=== PATIENT | male | born 1940 | race Caucasian/White ===

== ENCOUNTER 2016-03-30 13:57 | Inpatient (IN) | payer BC, MEDICARE ==
[2016-03-30] MEDS ORDERED: IPRATROPIUM/ALBUTEROL 0.5-2.5 MG/3 ML AMPUL NEB ONE (14:05)
[2016-03-30] MEDS ORDERED: METHYLPREDNISOLONE INJ 125 MG/2 ML SDV IV ONE (14:05)
--- NOTE | 2016-03-30 14:05 | ER Document Report ---
ED Respiratory Problem - General Chief Complaint: Shortness Of Breath Stated Complaint: BREATHING PROBLEM Notes: The patient is a 75-year-old male, past history COPD (not on home O2), presents with increased shortness of breath over the past day. He was found to be in A. fib with RVR and 85% on room air by EMS with some mild wheezing. He was given a DuoNeb treatment and his shortness of breath has improved. Patient says that he had A. fib 20 years ago and was cardioverted. He is not on any blood thinners other than a baby aspirin and does not have A. fib at this time. He denies chest pain, fevers, nausea, vomiting, back pain, leg swelling, rash, palpitations or cough. TRAVEL OUTSIDE OF THE [place] IN LAST 30 DAYS: No - Related Data Allergies/Adverse Reactions: No Known Allergies Allergy (Verified 03/30/16 14:54) Past Medical History - General Information source: Patient - Social History Smoking Status: Former Smoker Family History: Reviewed & Not Pertinent - Past Medical History Cardiac Medical History: Reports: Hx Hypertension - CONTROLLED Denies: Hx Heart Attack Pulmonary Medical History: Denies: Hx Asthma Neurological Medical History: Reports: Hx Cerebrovascular Accident - cerebral anuerysm. Denies: Hx Seizures GI Medical History: Denies: Hx Hepatitis, Hx Hiatal Hernia, Hx Ulcer Infectious Medical History: Denies: Hx Hepatitis Past Surgical History: Denies: Hx Open Heart Surgery, Hx Pacemaker - Immunizations Hx Diphtheria, Pertussis, Tetanus Vaccination: Yes - 09/28/2014 Review of Systems - Review of Systems Notes: REVIEW OF SYSTEMS: CONSTITUTIONAL: -fevers, -chills EENT: -eye pain, -difficulty swallowing, -nasal congestion CARDIOVASCULAR: -chest pain, -syncope. RESPIRATORY: +cough, +SOB GASTROINTESTINAL: -abdominal pain, -nausea, -vomiting, -diarrhea GENITOURINARY: -dysuria, -hematuria MUSCULOSKELETAL: -back pain, -neck pain SKIN: -rash or skin lesions. HEMATOLOGIC: -easy bruising or bleeding. LYMPHATIC: -swollen, enlarged glands. NEUROLOGICAL: -altered mental status or loss of consciousness, -headache, - neurologic symptoms PSYCHIATRIC: -anxiety, -depression. ALL OTHER SYSTEMS REVIEWED AND NEGATIVE. Physical Exam - Vital signs Vitals: Resp Pulse Ox 15 93 03/30/16 14:18 03/30/16 14:18 - Notes Notes: PHYSICAL EXAMINATION: GENERAL: Well-appearing, well-nourished and in no acute distress. HEAD: Atraumatic, normocephalic. EYES: Pupils equal round and reactive to light, extraocular movements intact, sclera anicteric, conjunctiva are normal. ENT: nares patent, oropharynx clear without exudates. Moist mucous membranes. NECK: Normal range of motion, supple without lymphadenopathy LUNGS: Mild end expiratory wheezing. No increased work of breathing. HEART: Irregular irregular heart rate, tachycardia. ABDOMEN: Soft, nontender, normoactive bowel sounds. No guarding, no rebound. No masses appreciated. EXTREMITIES: Normal range of motion, no pitting or edema. No cyanosis. NEUROLOGICAL: Cranial nerves grossly intact. Normal speech, normal gait. Normal sensory, motor, and reflex exams. PSYCH: Normal mood, normal affect. SKIN: Warm, Dry, normal turgor, no rashes or lesions noted. Course - Re-evaluation Re-evalutation: Patient with stable A. fib with RVR. He does have evidence of rhabdomyolysis with DELILAH (no prior creatinine level) and elevated troponin without STEMI on EKG. Patient has no chest pain. After DuoNeb and steroids, patient's wheezing resolved and he no longer has any shortness of breath. Patient has not had any recent GI bleeds or head injury. Will begin heparin due to NSTEMI and A. fib RVR. After 2 L of normal saline to help with the rhabdo and DELILAH, patient remains tachycardic. Will begin patient on diltiazem drip. He remains stable and asymptomatic. Patient has history of treated lymphoma and now has leukocytosis with tachycardia, but his lactate is normal and has no signs of infection at this time. With new onset A. fib, elevated troponin, rhabdomyolysis and DELILAH, patient requires inpatient evaluation at a facility with interventional cardiology. Patient requests transfer to [facility] because he has seen Dr. Zambrano ([facility]) in the past. Placed call to [facility] at 17:00. Awaiting callback from [facility]. At 17:30, spoke to Dr. Garcia Mcnamara ([facility]ic) and recommends that patient be placed on hospitalist service due to multiple other equal issues. 03/30/16 18:[address] Cortes (Hospitalist) and he has accepted patient to [facility] telemetry. Patient remains asymptomatic and hemodynamically stable. Started on diltiazem and heparin drip. Awaiting bed assignment and then transfer. - Vital Signs Vital signs: Temp Pulse Resp BP Pulse Ox 17 102/60 90 L 03/30/16 17:01 03/30/16 17:01 03/30/16 17:00 - Laboratory Result Diagrams: 03/30/16 14:20 03/30/16 14:20 Laboratory results interpreted by me: 03/30/16 03/30/16 03/30/16 14:20 14:20 14:20 WBC 16.0 H RBC 4.02 L Hgb 11.9 L Hct 36.7 L Seg Neuts % (Manual) 35 L Monocytes % (Manual) 21 H Abs Lymphs (Manual) 6.9 H Abs Monocytes (Manual) 3.4 H BUN 44 H Creatinine 2.83 H Est GFR ( Amer) 26 L Est GFR (Non-Af Amer) 22 L Glucose 160 H Calcium 11.5 H Creatine Kinase 1269 H NT-Pro-B Natriuret Pep 7300 H - EKG Interpretation by Me EKG shows normal: QRS Complexes, ST-T Waves Rate: Tachycardia Rhythm: A.Fib Discharge - Discharge Clinical Impression: NSTEMI (non-ST elevated myocardial infarction), Hypoxia, Atrial fibrillation with rapid ventricular response, DELILAH (acute kidney injury) Rhabdomyolysis Qualifiers: Rhabdomyolysis type: non-traumatic Qualified Code(s): M62.82 - Rhabdomyolysis Disposition: [facility] Admitting Provider: Dr. Cortes
[2016-03-30 14:48] LABS: HEMATOCRIT 36.7 % (37.9-51.0); HEMOGLOBIN 11.9 g/dL (13.5-17.0); MEAN CORPUSCULAR HEMOGLOBIN 29.6 pg (27.0-33.4); MEAN CORPUSCULAR HGB CONC 32.4 g/dL (32.0-36.0); MEAN CORPUSCULAR VOLUME 91 fl (80-97); RED BLOOD COUNT 4.02 10^6/uL (4.35-5.55); RED CELL DISTRIBUTION WIDTH 13.3 % (11.5-14.0)
[2016-03-30 15:05] LABS: ANION GAP 11 (5-19); BLOOD UREA NITROGEN 44 mg/dL (7-20); CALCIUM 11.5 mg/dL (8.4-10.2); CARBON DIOXIDE 28 mmol/L (22-30); CHLORIDE 99 mmol/L (98-107); CREATINE KINASE 1269 U/L (55-170); CREATININE RESULT 2.83 mg/dL (0.52-1.25); GLUCOSE 160 mg/dL (75-110); POTASSIUM 4.2 mmol/L (3.6-5.0); SODIUM 138.3 mmol/L (137-145)
[2016-03-30 15:09] LABS: BASOPHILS % (MANUAL) 1 % (0-2); EOSINOPHILS % (MANUAL) 0 % (0-6); LYMPHOCYTES % (MANUAL) 23 % (13-45); TOTAL CELLS COUNTED 100
[2016-03-30 15:11] LABS: RBC MORPHOLOGY COMMENT NORMO-CYTIC/CHROMIC; SMUDGE CELLS PRESENT; TOXIC GRANULATION SLIGHT
[2016-03-30] MEDS ORDERED: DILTIAZEM HCL INJ 25 MG/5 ML VIAL IV ONE ×2 (15:13→18:45)
[2016-03-30] MEDS ORDERED: NORMAL SALINE 1000 ML 1,000 ML IV PRN ×2 (15:13→19:20)
[2016-03-30 15:26] LABS: TROPONIN I 0.181 ng/mL
[2016-03-30] MEDS ORDERED: HEPARIN SOD (PORCINE) 1,000 UNIT/ML 1 ML VIAL IV ONE (15:46)
[2016-03-30] MEDS ORDERED: HEPARIN SOD (PORCINE) 1,000 UNIT/ML 10 ML VIAL IV ONE ×2 (15:49→15:52)
[2016-03-30] MEDS ORDERED: HEPARIN SOD (PORCINE) 1,000 UNIT/ML 10 ML VIAL IV PRN (15:52)
[2016-03-30] MEDS ORDERED: NITROGLYCERIN 0.4 MG/TAB 25 TAB/BOTTLE SL PRN (16:23)
[2016-03-30] MEDS ORDERED: ASPIRIN 81 MG TABLET, CHEWABLE PO ONE (16:36)
[2016-03-30] MEDS: HEPARIN SODIUM,PORCINE/D5W 250 ML IV PRN (18:00)
[2016-03-30] MEDS ORDERED: DILTIAZEM HCL/D5W 125 ML IV PRN (18:17)
[2016-03-30] MEDS ORDERED: NORMAL SALINE 1000 ML 1,000 ML IV ONE (19:18)
[2016-03-30 21:43] LABS: APPEARANCE,URINE CLOUDY; BILIRUBIN,URINE NEGATIVE (NEGATIVE); GLUCOSE, URINE NEGATIVE (NEGATIVE); KETONES,URINE TRACE mg/dL (NEGATIVE); LEUKOCYTE ESTERASE,URINE NEGATIVE (NEGATIVE); NITRITE,URINE NEGATIVE (NEGATIVE); PROTEIN,URINE 30 mg/dL (NEGATIVE); URINE SPECIFIC GRAVITY 1.019; UROBILINOGEN,URINE NEGATIVE mg/dL (<2.0)
--- NOTE | 2016-03-30 21:51 | EKG REPORT ---
SEVERITY:- ABNORMAL ECG - ATRIAL FIBRILLATION, V-RATE 78-176 REPOLARIZATION ABNORMALITY, PROB RATE RELATED BORDERLINE PROLONGED QT INTERVAL : Confirmed by: Kp Najera 30-Mar-2016 21:50:41
[2016-03-31 00:56] LABS: PROTHROMBIN TIME 14.6 SEC (11.4-15.4)
[2016-03-31 07:09] LABS: PROTHROMBIN TIME 14.2 SEC (11.4-15.4)
[2016-03-31 07:31] LABS: PARTIAL THROMBOPLASTIN TIME 149.2 SEC (23.5-35.8)
[2016-03-31] MEDS ORDERED: LANSOPRAZOLE 15 MG TAB.RAP.DR PO ONE (11:30)
[2016-03-31] MEDS ORDERED: DOXYCYCLINE HYCLATE 100 MG TABLET PO SCH ×2 (12:00→22:00)
[2016-03-31] MEDS ORDERED: DOXYCYCLINE HYCLATE 100 MG TABLET PO ONE (12:00)
[2016-03-31] MEDS: NORMAL SALINE 1000 ML 1,000 ML IV PRN (12:25)
[2016-03-31] MEDS ORDERED: AMIODARONE HCL 150 MG in DEXTROSE 5%-WATER 100 ML IV ONE (12:30)
--- NOTE | 2016-03-31 15:35 | PDOC H&P ---
History of Present Illness Admission Date/PCP: 03/31/16 11:11 Patient complains of: "flue like symptoms ". atrial fibrillation with RVR History of Present Illness: NADEGE MILLER is a 75 year old male past history COPD (not on home O2), presents with increased shortness of breath over the past day. He was found to be in A. fib with RVR and 85% on room air by EMS with some mild wheezing. He was given a DuoNeb treatment and his shortness of breath has improved. Patient says that he had A. fib 20 years ago and was cardioverted. Past Medical History Cardiac Medical History: Reports: Hypertension - CONTROLLED Denies: Myocardial Infarction Pulmonary Medical History: Reports: Chronic Obstructive Pulmonary Disease (COPD) Denies: Asthma Neurological Medical History: Denies: Seizures GI Medical History: Denies: Hepatitis, Hiatal Hernia Hematology: Denies: Anemia, Sickle Cell Disease Past Surgical History Past Surgical History: Denies: Pacemaker Social History Smoking Status: Former Smoker Frequency of Alcohol Use: None Hx Recreational Drug Use: No Hx Prescription Drug Abuse: No - Advance Directive Resuscitation Status: Full Code Surrogate healthcare decision maker:: Eva Family History Family History: Other - patient not cooperative in giving information "doctor should not ask private questions " Parental Family History Reviewed: Yes Children Family History Reviewed: Yes Sibling(s) Family History Reviewed.: Yes Medication/Allergy Home Medications: Aspirin [Aspirin EC] 81 mg PO DAILY 12/25/13 Budesonide/Formoterol Fumarate [Symbicort HFA 160-4.5 mcg Inhaler 6 gm] 2 puff IH Q12 12/25/13 Folic Acid/Multivit-Min/Lutein [Centrum Silver Chewable Tablet] 1 each PO DAILY 12/25/13 Omeprazole [Prilosec] 20 mg PO QAM 12/25/13 Doxazosin Mesylate 8 mg PO QHS 12/26/15 Metoprolol Succinate 50 mg PO TID 12/26/15 Lisinopril/Hydrochlorothiazide [Lisinopril-Hctz 20-12.5 mg Tab] 1 tab PO DAILY 03/31/16 Sertraline HCl [Zoloft 50 mg Tablet] 50 mg PO DAILY 03/31/16 Allergies/Adverse Reactions: No Known Allergies Allergy (Verified 03/30/16 14:54) Review of Systems Constitutional: PRESENT: weakness. ABSENT: anorexia, chills, fever(s), night sweats Nose, Mouth, and Throat: ABSENT: headache(s) Cardiovascular: PRESENT: chest pain, dyspnea on exertion, palpitations Respiratory: PRESENT: cough, dyspnea, sputum - yellow. ABSENT: hemoptysis Gastrointestinal: ABSENT: abdominal pain, constipation, diarrhea, hematemesis, hematochezia, nausea, vomiting Genitourinary: ABSENT: dysuria, hematuria Musculoskeletal: ABSENT: joint swelling Neurological: ABSENT: abnormal gait, abnormal speech, confusion, dizziness, focal weakness, syncope Hematologic/Lymphatic: ABSENT: easy bleeding, easy bruising Physical Exam Vital Signs: Temp Pulse Resp BP Pulse Ox 97.6 F 96 24 H 117/72 94 03/30/16 19:00 03/31/16 11:39 03/31/16 11:39 03/31/16 11:39 03/31/16 11:39 General appearance: PRESENT: no acute distress, well-developed, well-nourished Head exam: PRESENT: atraumatic, normocephalic Eye exam: PRESENT: conjunctiva pink, EOMI, PERRLA. ABSENT: scleral icterus Ear exam: PRESENT: normal external ear exam Mouth exam: PRESENT: moist, tongue midline Neck exam: ABSENT: carotid bruit, JVD, lymphadenopathy, thyromegaly Respiratory exam: PRESENT: decreased breath sounds. ABSENT: rales, rhonchi, wheezes Cardiovascular exam: PRESENT: RRR. ABSENT: diastolic murmur, rubs, systolic murmur Pulses: PRESENT: normal dorsalis pedis pul Vascular exam: PRESENT: normal capillary refill GI/Abdominal exam: PRESENT: normal bowel sounds, soft. ABSENT: distended, guarding, mass, organolmegaly, rebound, tenderness Rectal exam: PRESENT: deferred Extremities exam: PRESENT: full ROM. ABSENT: calf tenderness, clubbing, pedal edema Neurological exam: PRESENT: alert, awake, oriented to person, oriented to place , oriented to time, oriented to situation, CN II-XII grossly intact. ABSENT: motor sensory deficit Psychiatric exam: PRESENT: appropriate affect, normal mood. ABSENT: homicidal ideation, suicidal ideation Skin exam: PRESENT: dry, intact, warm. ABSENT: cyanosis, rash Results Laboratory Results: 03/31/16 11:29 Troponin I 0.081 Labs- All tests 24 hr 03/30/16 03/30/16 03/30/16 14:20 16:05 20:30 WBC 16.0 H RBC 4.02 L Hgb 11.9 L Hct 36.7 L MCV 91 MCH 29.6 MCHC 32.4 RDW 13.3 Plt Count 405 Total Counted 100 Seg Neuts % (Manual) 35 L Lymphocytes % (Manual) 23 Atypical Lymphs % 20 Monocytes % (Manual) 21 H Eosinophils % (Manual) 0 Basophils % (Manual) 1 Abs Neuts (Manual) 5.6 Abs Lymphs (Manual) 6.9 H Abs Monocytes (Manual) 3.4 H Absolute Eos (Manual) 0.0 Abs Basophils (Manual) 0.2 Smudge Cells PRESENT Toxic Granulation SLIGHT Platelet Comment ADEQUATE RBC Morph Comment NORMO-CYTIC/CHROMIC PT INR APTT Lactic Acid 1.7 Troponin I 0.122 Urine Color Urine Appearance Urine pH Ur Specific [place] Urine Protein Urine Glucose (UA) Urine Ketones Urine Blood Urine Nitrite Urine Bilirubin Urine Urobilinogen Ur Leukocyte Esterase Urine WBC (Auto) Urine RBC (Auto) U Hyaline Cast (Auto) Urine Bacteria (Auto) Squamous Epi Cells Auto Urine Mucus (Auto) Urine Ascorbic Acid Slides for Path Review 03/30/16 03/31/16 03/31/16 21:23 00:39 00:39 WBC RBC Hgb Hct MCV MCH MCHC RDW Plt Count Total Counted Seg Neuts % (Manual) Lymphocytes % (Manual) Atypical Lymphs % Monocytes % (Manual) Eosinophils % (Manual) Basophils % (Manual) Abs Neuts (Manual) Abs Lymphs (Manual) Abs Monocytes (Manual) Absolute Eos (Manual) Abs Basophils (Manual) Smudge Cells Toxic Granulation Platelet Comment RBC Morph Comment PT 14.6 INR 1.10 APTT Lactic Acid Troponin I 0.109 Urine Color YELLOW Urine Appearance CLOUDY Urine pH 5.0 Ur Specific [place] 1.019 Urine Protein 30 H Urine Glucose (UA) NEGATIVE Urine Ketones TRACE H Urine Blood NEGATIVE Urine Nitrite NEGATIVE Urine Bilirubin NEGATIVE Urine Urobilinogen NEGATIVE Ur Leukocyte Esterase NEGATIVE Urine WBC (Auto) 7 Urine RBC (Auto) 4 U Hyaline Cast (Auto) 111 Urine Bacteria (Auto) TRACE Squamous Epi Cells Auto 5 Urine Mucus (Auto) OCC Urine Ascorbic Acid NEGATIVE Slides for Path Review 03/31/16 03/31/16 03/31/16 00:39 02:49 06:46 WBC RBC Hgb Hct MCV MCH MCHC RDW Plt Count Total Counted Seg Neuts % (Manual) Lymphocytes % (Manual) Atypical Lymphs % Monocytes % (Manual) Eosinophils % (Manual) Basophils % (Manual) Abs Neuts (Manual) Abs Lymphs (Manual) Abs Monocytes (Manual) Absolute Eos (Manual) Abs Basophils (Manual) Smudge Cells Toxic Granulation Platelet Comment RBC Morph Comment PT 14.2 INR 1.07 APTT Cancelled 108.1 H 149.2 H* Lactic Acid Troponin I Urine Color Urine Appearance Urine pH Ur Specific [place] Urine Protein Urine Glucose (UA) Urine Ketones Urine Blood Urine Nitrite Urine Bilirubin Urine Urobilinogen Ur Leukocyte Esterase Urine WBC (Auto) Urine RBC (Auto) U Hyaline Cast (Auto) Urine Bacteria (Auto) Squamous Epi Cells Auto Urine Mucus (Auto) Urine Ascorbic Acid Slides for Path Review 03/31/16 03/31/16 11:29 13:01 WBC RBC Hgb Hct MCV MCH MCHC RDW Plt Count Total Counted Seg Neuts % (Manual) Lymphocytes % (Manual) Atypical Lymphs % Monocytes % (Manual) Eosinophils % (Manual) Basophils % (Manual) Abs Neuts (Manual) Abs Lymphs (Manual) Abs Monocytes (Manual) Absolute Eos (Manual) Abs Basophils (Manual) Smudge Cells Toxic Granulation Platelet Comment RBC Morph Comment PT INR APTT 65.5 H Lactic Acid Troponin I 0.081 Urine Color Urine Appearance Urine pH Ur Specific [place] Urine Protein Urine Glucose (UA) Urine Ketones Urine Blood Urine Nitrite Urine Bilirubin Urine Urobilinogen Ur Leukocyte Esterase Urine WBC (Auto) Urine RBC (Auto) U Hyaline Cast (Auto) Urine Bacteria (Auto) Squamous Epi Cells Auto Urine Mucus (Auto) Urine Ascorbic Acid Slides for Path Review Impressions: Chest X-Ray 03/30/16 14:04 IMPRESSION: COPD. No acute findings. Renal Ultrasound 03/31/16 11:14 IMPRESSION: Benign cysts. No hydronephrosis. Assessment & Plan - Diagnosis (1) DELILAH (acute kidney injury) Is this a current diagnosis for this admission?: YesPlan: prior renal function unknown Renal US no hydronephrosis continue to hydrate follow up BMP in am (2) Atrial fibrillation with rapid ventricular response Plan: cardizem drip, amiodarone drip heparin drip cardiology consult obtained - (3) COPD exacerbation Is this a current diagnosis for this admission?: YesPlan: levaquin , nebs (4) Elevated troponin Is this a current diagnosis for this admission?: YesPlan: in downward trend troponin leak associated with tachycardia versus acute nonSTEMI ASA, Heparin , lipitor ordered Echo Cardiology consult - Time Time Spent: 50 to 70 Minutes
[2016-03-31] MEDS: HEPARIN SODIUM,PORCINE/D5W 250 ML IV PRN (16:30)
--- NOTE | 2016-03-31 16:43 | XCELERA REPORT ---
[address] [address] Transthoracic Echocardiogram Report Name: NADEGE MILLER Age: 75 yrs Gender: Male : 1940 Patient Status: Inpatient Patient Location: \S\14\S\A Study Date: 03/31/2016 01:04 PM Height: 77 in Weight: 250 lb BSA: 2.5 m2 Procedure: A complete two-dimensional transthoracic echocardiogram was performed (2D, M-mode, spectral and color flow Doppler). The study was technically adequate with some images being suboptimal in quality. Reason For Study: PAF Ordering Physician: VALERIE CHAVEZ Performed By: Lucille Blanco Interpretation Summary The left ventricular ejection fraction is normal. The left ventricle is grossly normal size. There is borderline concentric left ventricular hypertrophy. Wall motion cannot be accurately commented on, but no definite regional wall motion abnormalities noted. LV diastolic function could not be adequately assessed due to atrial fibrilation. The right ventricular systolic function is normal. The left atrial size is normal. The right atrium is normal in size There is a trace amount of mitral regurgitation There is no mitral valve stenosis. There is no aortic valve stenosis No aortic regurgitation is present. There is a trace or physiologic amount of tricuspid regurgitation Tricuspid regurgitation jet envelope not well defined to measure RV systolic pressure accurately. There is no pericardial effusion. MMode/2D Measurements \T\ Calculations RVDd: 3.4 cm LVIDd: 5.2 cmFS: 43.1 % Ao root diam: 4.4 cm IVSd: 1.2 cm LVIDs: 2.9 cmEDV(Teich): 127.3 ml LVPWd: 1.2 cmESV(Teich): 33.2 ml Ao root area: 15.0 cm2 EF(Teich): 73.9 % LA dimension: 3.3 cm LVOT diam: 2.4 cm LVOT area: 4.5 cm2 Doppler Measurements \T\ Calculations MV E max valerie: MV P1/2t max valerie: Ao V2 max: LV V1 max P.5 cm/sec 116.5 cm/sec 133.9 cm/sec 3.6 mmHg MV P1/2t: 50.6 msec Ao max PG: LV V1 max: MVA(P1/2t): 4.4 cm2 7.2 mmHg 94.3 cm/sec MV dec slope: JUDY(V,D): 3.2 cm2 674.6 cm/sec2 MV dec time: 0.19 sec PA V2 max: TR max valerie: 87.9 cm/sec 212.8 cm/sec PA max P.1 mmHgTR max P.1 mmHg Left Ventricle The left ventricle is grossly normal size. There is borderline concentric left ventricular hypertrophy. The left ventricular ejection fraction is normal. LV diastolic function could not be adequately assessed due to atrial fibrilation. Wall motion cannot be accurately commented on, but no definite regional wall motion abnormalities noted. Right Ventricle The right ventricle is grossly normal size. There is normal right ventricular wall thickness. The right ventricular systolic function is normal. Atria The right atrium is normal in size. The left atrial size is normal. Interarterial septum not well visualized and not well dopplered. Cannot comment on ASD/PFO presence. Mitral Valve The mitral valve leaflets are sclerotic, but show no functional abnormalities. There is no mitral valve stenosis. There is a trace amount of mitral regurgitation. Aortic Valve The aortic valve is mildly calcified. There is no aortic valve stenosis. No aortic regurgitation is present. Tricuspid Valve The tricuspid valve is not well visualized, but is grossly normal. There is no tricuspid stenosis. There is a trace or physiologic amount of tricuspid regurgitation. Tricuspid regurgitation jet envelope not well defined to measure RV systolic pressure accurately. Pulmonic Valve The pulmonic valve is not well visualized. Great Vessels The aortic root is not well visualized. The inferior vena cava appeared normal and decreased > 50% with respiration (RAP 5-10 mmHg). Effusions There is no pericardial effusion. : VALERIE CHAVEZ > Kp Najera
[2016-03-31] MEDS ORDERED: HEPARIN SODIUM,PORCINE/D5W 250 ML IV PRN (16:56)
[2016-03-31] MEDS ORDERED: DILTIAZEM HCL/D5W 125 ML IV PRN (16:57)
[2016-03-31 17:59] LABS: HEMATOCRIT 32.8 % (37.9-51.0); HEMOGLOBIN 10.9 g/dL (13.5-17.0); HGB HCT DIFFERENCE -0.1; MEAN CORPUSCULAR HEMOGLOBIN 29.9 pg (27.0-33.4); MEAN CORPUSCULAR HGB CONC 33.2 g/dL (32.0-36.0); MEAN CORPUSCULAR VOLUME 90 fl (80-97); RED BLOOD COUNT 3.65 10^6/uL (4.35-5.55); RED CELL DISTRIBUTION WIDTH 13.4 % (11.5-14.0); WHITE BLOOD COUNT 20.1 10^3/uL (4.0-10.5)
[2016-03-31 18:12] LABS: PROTHROMBIN TIME 13.2 SEC (11.4-15.4)
[2016-03-31 18:13] LABS: BAND NEUTROPHILS % (MANUAL) 2 % (3-5); BASOPHILS % (MANUAL) 0 % (0-2); EOSINOPHILS % (MANUAL) 0 % (0-6); LYMPHOCYTES % (MANUAL) 17 % (13-45); PARTIAL THROMBOPLASTIN TIME 51.1 SEC (23.5-35.8); TOTAL CELLS COUNTED 100
[2016-03-31 18:14] LABS: TOXIC GRANULATION SLIGHT
[2016-03-31 19:32] LABS: APPEARANCE,URINE CLEAR; BILIRUBIN,URINE NEGATIVE (NEGATIVE); GLUCOSE, URINE NEGATIVE (NEGATIVE); KETONES,URINE NEGATIVE (NEGATIVE); LEUKOCYTE ESTERASE,URINE NEGATIVE (NEGATIVE); NITRITE,URINE NEGATIVE (NEGATIVE); PROTEIN,URINE NEGATIVE (NEGATIVE); URINE SPECIFIC GRAVITY 1.013; UROBILINOGEN,URINE NEGATIVE mg/dL (<2.0)
--- NOTE | 2016-03-31 19:58 | PDOC CONSULTATION ---
Consultation Consult Date: 03/31/16 Attending physician:: VALERIE CHAVEZ Consult reason:: Positive troponin I, atrial fibrillation with rapid ventricular response History of Present Illness Admission Date/PCP: 03/31/16 11:11 Patient complains of: Dyspnea History of Present Illness: NADEGE MILLER is a 75 year old male past history COPD (not on home O2), presents with increased shortness of breath over the past day. He was found to be in A. fib with RVR and 85% on room air by EMS with some mild wheezing. He was given a DuoNeb treatment and his shortness of breath has improved. Patient says that he had A. fib 20 years ago and was cardioverted. Patient was again noted to have atrial fibrillation with rapid ventricular response. Subsequently patient cardiac enzymes came back suggestive. Patient was also noted to have renal insufficiency. Because of elevated troponin I, atrial fibrillation with rapid ventricular response, I was asked to evaluate patient. Patient denied any prior history of strokes or mini strokes. Past Medical History Cardiac Medical History: Reports: Hypertension - CONTROLLED Denies: Myocardial Infarction Pulmonary Medical History: Reports: Chronic Obstructive Pulmonary Disease (COPD) Denies: Asthma Neurological Medical History: Denies: Seizures GI Medical History: Denies: Hepatitis, Hiatal Hernia Psychiatric Medical History: Reports: Depression Hematology: Denies: Anemia, Sickle Cell Disease Past Surgical History Past Surgical History: Denies: Pacemaker Social History Information Source: Patient Smoking Status: Former Smoker Frequency of Alcohol Use: None Hx Recreational Drug Use: No Hx Prescription Drug Abuse: No - Advance Directive Resuscitation Status: Full Code Surrogate healthcare decision maker:: Patient's Family History Family History: Reviewed & Not Pertinent - Negative for premature coronary artery disease or sudden cardiac in the family amongst first degree relatives., Other - patient not cooperative in giving information "doctor should not ask private questions " Parental Family History Reviewed: Yes Children Family History Reviewed: Yes Sibling(s) Family History Reviewed.: Yes Medication/Allergy Home Medications: Aspirin [Aspirin EC] 81 mg PO DAILY 12/25/13 Budesonide/Formoterol Fumarate [Symbicort HFA 160-4.5 mcg Inhaler 6 gm] 2 puff IH Q12 12/25/13 Folic Acid/Multivit-Min/Lutein [Centrum Silver Chewable Tablet] 1 each PO DAILY 12/25/13 Omeprazole [Prilosec] 20 mg PO QAM 12/25/13 Doxazosin Mesylate 8 mg PO QHS 12/26/15 Metoprolol Succinate 50 mg PO TID 12/26/15 Lisinopril/Hydrochlorothiazide [Lisinopril-Hctz 20-12.5 mg Tab] 1 tab PO DAILY 03/31/16 Sertraline HCl [Zoloft 50 mg Tablet] 50 mg PO DAILY 03/31/16 Allergies/Adverse Reactions: No Known Allergies Allergy (Verified 03/30/16 14:54) Review of Systems Review of Systems: Please see history of present illness and past medical history as wall. Constitutional: No fever or chills reported. Head : No recent chronic headaches, recent head injury. Eyes: No recent eye pain, diplopia, redness, discharge, acute visual changes. Ears: No recent chronic ear pain, acute hearing loss, ear discharge. Oral cavity: No recent ulcerations, bleeding, oral cavity discomfort. Neck: No recent acute neck pain reported. Hematologic: No recent easy bruising or bleeding or hematologic malignancy reported. Lymphatic: No recent lymphatic malignancy, chronic lymphadenopathy reported yet Cardiovascular system review: See history of present illness. Respiratory system review: Recent cough with mild sputum production but no hemoptysis, blood clots in the lungs reported. Mild Shortness of breath on exertion Gastrointestinal system review: Negative for any recent acute or chronic abdominal pain, hematemesis, melena, recent change in bowel habits. Genitourinary system review: No recent acute or chronic hematuria, flank pain, UTI etc. reported. Skin system review: Negative for any recent abnormal bruising, no rash, no pruritus reported. Neurologic: No prior history of strokes, mini strokes, seizure disorder. Psychologic: No history of major psychosis or depression reported. Musculoskeletal: Minor aches and pains reported. No acute joint swelling reported. Endocrine: No recent polyuria, polydipsia, recent heat or cold intolerance. Physical Exam Vital Signs: Temp Pulse Resp BP Pulse Ox 97.9 F 96 24 H 148/84 H 94 03/31/16 15:50 03/31/16 15:50 03/31/16 15:50 03/31/16 17:01 03/31/16 15:50 Intake & Output 03/30/16 03/31/16 04/01/16 06:59 06:59 06:59 Intake Total 0 Output Total 200 Balance -200 Exam: GENERAL: well-nourished and in no acute distress. Alert and oriented x3 HEAD: Atraumatic, normocephalic. EYES: Pupils equal round and reactive to light, extraocular movements intact, sclera anicteric, conjunctiva are normal. ENT: TMs normal, nares patent, oropharynx clear without exudates. Moist mucous membranes. No oral ulcerations or bleeding gums noted NECK: supple without lymphadenopathy. Trachea is central. No cervical or axillary lymphadenopathy noted. Carotids are 2+, JVD 8-10 CM LUNGS: Respiration seems nonlabored, no significant accessory muscle action noted. Bilateral fine crackles noted at extreme base. No wheezes rales or rhonchi noted. No significant dullness noted on percussion. CHEST: Palpation of the chest wall shows no significant chest wall tenderness. No other significant abnormalities noted. 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 ABDOMEN: Soft, no significant tenderness appreciated, normoactive bowel sounds. No guarding, no rebound. No rigidity noted . No masses appreciated. EXTREMITIES: Pedal pulses are 1-2+, no calf tenderness noted. No clubbing or cyanosis.trace to 1+ pedal edema noted NEUROLOGICAL: Focused neurological exam showed no significant neurologic deficit. Normal speech, no focal weakness appreciated. PSYCH: Normal mood, normal affect. Judgment and insight within normal limits. SKIN: No significant ecchymosis, rash, ulcerations or signs of pruritus noted. MUSCULOSKELETAL EXAM: No significant joint swelling noted. Results Laboratory Results: 03/31/16 17:45 03/31/16 03/31/16 17:45 19:00 WBC 20.1 H RBC 3.65 L Hgb 10.9 L Hct 32.8 L MCV 90 MCH 29.9 MCHC 33.2 RDW 13.4 Plt Count 344 Seg Neutrophils % Not Reportable Lymphocytes % Not Reportable Monocytes % Not Reportable Eosinophils % Not Reportable Basophils % Not Reportable Absolute Neutrophils Not Reportable Absolute Lymphocytes Not Reportable Absolute Monocytes Not Reportable Absolute Eosinophils Not Reportable Absolute Basophils Not Reportable Urine Color YELLOW Urine Appearance CLEAR Urine pH 5.0 Ur Specific [place] 1.013 Urine Protein NEGATIVE Urine Glucose (UA) NEGATIVE Urine Ketones NEGATIVE Urine Blood SMALL H Urine Nitrite NEGATIVE Ur Leukocyte Esterase NEGATIVE Urine WBC (Auto) 2 Urine RBC (Auto) 5 03/31/16 03/31/16 11:29 17:45 Troponin I 0.081 0.080 EKG Comments: 12-lead EKG shows atrial fibrillation with rapid ventricular response and minor nonspecific ST-T wave changes noted. Impressions: Chest X-Ray 03/30/16 14:04 IMPRESSION: COPD. No acute findings. Renal Ultrasound 03/31/16 11:14 IMPRESSION: Benign cysts. No hydronephrosis. Assessment & Plan - Diagnosis (1) CHF (congestive heart failure) Qualifiers: Congestive heart failure type: diastolic Congestive heart failure chronicity: acute on chronic Qualified Code(s): I50.33 - Acute on chronic diastolic (congestive) heart failure Is this a current diagnosis for this admission?: Yes (2) Atrial fibrillation with rapid ventricular response Is this a current diagnosis for this admission?: Yes (3) COPD exacerbation Is this a current diagnosis for this admission?: Yes (4) Elevated troponin Is this a current diagnosis for this admission?: Yes - Notes Notes: Elevated troponin I: Most likely related to supply demand mismatch. This is related to atrial fibrillation with rapid ventricular response. At this point recommend control of heart rate, chronic anticoagulation, statin therapy, Cardizem drip etc. Patient may benefit from a nuclear stress test but that can be performed prior to discharge or as an outpatient. COPD with exacerbation continue with medical management with steroids, bronchodilator and oxygen supplementation etc. Atrial fibrillation with rapid ventricular response: Patient tends to run very high heart rate. At this point elected to place patient on amiodarone drip and bolus protocol. Hopefully he will convert. Would recommend switch patient to amiodarone at 200 by mouth twice a day and continue this for at least a month. For anticoagulation, recommend either ELIQUIS at 5 mg by mouth twice a day or consider Coumadin therapy. A 2-D echo was ordered. Congestive heart failure: This is predominantly right-sided currently along with diastolic dysfunction. Recommend diuretic therapy. Renal insufficiency: Exact etiology not clear. Renal ultrasound has been ordered. Patient may benefit from nephrology consultation. - Time Time Spent: 30 to 50 Minutes - CODE STATUS was discussed, patient remains full code. Surrogate decision-maker patient's spouse. Multiple medical problems were addressed.More than 50% of the time spent coordinating care, discussing management plans with involved caregivers. Management plans discussed with involved personnels. Medical decision making was of moderate complexity.
[2016-03-31] MEDS ORDERED: DOXAZOSIN MESYLATE 8 MG PO SCH (22:00)
[2016-03-31] MEDS ORDERED: HYDRALAZINE HCL INJ/PF 20 MG/1 ML SDV IV PRN (22:04)
[2016-03-31] MEDS ORDERED: IPRATROPIUM BROMIDE 0.02% NEB 0.5 MG/2.5 ML AMPUL NEB ONE ×2 (22:19)
[2016-03-31] MEDS: LEVALBUTEROL HCL NEB 1.25 MG/3 ML AMPUL NEB SCH ×2 (22:36→22:43)
[2016-03-31] MEDS: BUDESONIDE/FORMOTEROL 160-4.5 MCG 60 PUFF/6 GM MDI IH SCH (22:43)
[2016-03-31] MEDS ORDERED: LEVALBUTEROL HCL NEB 1.25 MG/3 ML AMPUL NEB ONE (22:43)
[2016-03-31] MEDS: ROPINIROLE HCL 1 MG TABLET PO SCH (22:44)
[2016-03-31] MEDS: DOXAZOSIN MESYLATE 4 MG TABLET PO SCH (22:44)
[2016-03-31] MEDS: GUAIFENESIN 600 MG TABLET.SA PO SCH (22:44)
--- NOTE | 2016-04-01 00:05 | EKG REPORT ---
SEVERITY:- ABNORMAL ECG - ATRIAL FIBRILLATION, V-RATE 90-158 LOW VOLTAGE IN FRONTAL LEADS BORDERLINE REPOL ABNORMALITY, DIFFUSE LEADS BORDERLINE PROLONGED QT INTERVAL : Confirmed by: Kp Najera 01-Apr-2016 00:03:53
--- NOTE | 2016-04-01 00:05 | EKG REPORT ---
SEVERITY:- ABNORMAL ECG - ATRIAL FIBRILLATION, V-RATE 61-94 LOW VOLTAGE IN FRONTAL LEADS : Confirmed by: Kp Najera 01-Apr-2016 00:04:04
[2016-04-01] MEDS ORDERED: METOPROLOL TARTRATE PF/INJ 5 MG/5 ML SDV IV ONE ×2 (01:34→03:00)
[2016-04-01] MEDS: NORMAL SALINE 1000 ML 1,000 ML IV PRN (01:48)
[2016-04-01] MEDS: LEVALBUTEROL HCL NEB 1.25 MG/3 ML AMPUL NEB SCH ×4 (01:49→20:27)
[2016-04-01] MEDS: IPRATROPIUM BROMIDE 0.02% NEB 0.5 MG/2.5 ML AMPUL NEB SCH ×4 (01:49→20:27)
[2016-04-01] MEDS ORDERED: ONDANSETRON HCL INJ/PF 4 MG/2 ML SDV ONE (03:17)
[2016-04-01] MEDS ORDERED: ONDANSETRON HCL INJ/PF 4 MG/2 ML SDV IV ONE (04:30)
[2016-04-01] MEDS: LANSOPRAZOLE 15 MG TAB.RAP.DR PO SCH (07:01)
[2016-04-01] MEDS ORDERED: MORPHINE SULFATE 10 MG/ML INJ ONE (07:43)
[2016-04-01] MEDS ORDERED: DILTIAZEM HCL/D5W 125 MG/125 ML RTUINJ IV ONE (07:58)
[2016-04-01] MEDS ORDERED: DILTIAZEM HCL INJ 25 MG/5 ML VIAL ONE (07:58)
[2016-04-01] MEDS ORDERED: (PENDING PHARMACY ID) (Omeprazole [Prilosec] 20 MG) PO SCH (08:00)
[2016-04-01] MEDS ORDERED: MORPHINE SULFATE 10 MG/ML INJ IV PRN (08:12)
--- NOTE | 2016-04-01 08:40 | PDOC PROGRESS REPORT ---
Subjective Progress Note for:: 04/01/16 Subjective:: Patient looks very ill this morning He is a febrile tachypneic On the monitor is in A. fib with a again rapid ventricular rate at 130-140 He is complaining of severe low back pain which started last night Repeat EKG shows ST depression on precordial leads And a flu test was positive for influenza A Physical Exam Vital Signs: Temp Pulse Resp BP Pulse Ox 99.4 F 140 H 24 H 148/86 H 94 04/01/16 08:00 04/01/16 08:07 04/01/16 08:07 04/01/16 08:00 04/01/16 08:07 Intake & Output 03/31/16 04/01/16 04/02/16 00:59 00:59 00:59 Intake Total 678 1174 Output Total 450 200 Balance 228 974 Weight 109.7 kg General appearance: PRESENT: mild distress, other - Tachypneic in pain looks ill Head exam: PRESENT: atraumatic, normocephalic Eye exam: PRESENT: conjunctiva pink, EOMI, PERRLA. ABSENT: scleral icterus Neck exam: ABSENT: carotid bruit, JVD, lymphadenopathy, thyromegaly Respiratory exam: PRESENT: clear to auscultation nas. ABSENT: rales, rhonchi, wheezes Cardiovascular exam: PRESENT: irregular rhythm, tachycardia. ABSENT: diastolic murmur, gallop Pulses: PRESENT: normal dorsalis pedis pul GI/Abdominal exam: PRESENT: normal bowel sounds, soft. ABSENT: distended, guarding, mass, organolmegaly, rebound, tenderness Neurological exam: PRESENT: alert, awake, oriented to person, oriented to place , oriented to time, oriented to situation, CN II-XII grossly intact. ABSENT: motor sensory deficit Results Laboratory Results: 03/31/16 17:45 03/31/16 03/31/16 17:45 19:00 WBC 20.1 H RBC 3.65 L Hgb 10.9 L Hct 32.8 L MCV 90 MCH 29.9 MCHC 33.2 RDW 13.4 Plt Count 344 Seg Neutrophils % Not Reportable Lymphocytes % Not Reportable Monocytes % Not Reportable Eosinophils % Not Reportable Basophils % Not Reportable Absolute Neutrophils Not Reportable Absolute Lymphocytes Not Reportable Absolute Monocytes Not Reportable Absolute Eosinophils Not Reportable Absolute Basophils Not Reportable Urine Color YELLOW Urine Appearance CLEAR Urine pH 5.0 Ur Specific [place] 1.013 Urine Protein NEGATIVE Urine Glucose (UA) NEGATIVE Urine Ketones NEGATIVE Urine Blood SMALL H Urine Nitrite NEGATIVE Ur Leukocyte Esterase NEGATIVE Urine WBC (Auto) 2 Urine RBC (Auto) 5 03/31/16 03/31/16 03/31/16 11:29 17:45 23:45 Troponin I 0.081 0.080 0.068 03/31/16 21:30 Influenza A (Rapid) POSITIVE Influenza B (Rapid) NEGATIVE Impressions: Chest X-Ray 03/30/16 14:04 IMPRESSION: COPD. No acute findings. Renal Ultrasound 03/31/16 11:14 IMPRESSION: Benign cysts. No hydronephrosis. Assessment & Plan - Diagnosis (1) DELILAH (acute kidney injury) Is this a current diagnosis for this admission?: Yes (2) Atrial fibrillation with rapid ventricular response Is this a current diagnosis for this admission?: YesPlan: Rate is fast again We will resume Cardizem drip after giving 10 mg of IV Cardizem (3) COPD exacerbation Is this a current diagnosis for this admission?: Yes (4) Elevated troponin Is this a current diagnosis for this admission?: Yes (5) Low back pain Qualifiers: Chronicity: acute Back pain laterality: unspecified Is this a current diagnosis for this admission?: YesPlan: Etiology is unclear Dissecting abdominal aortic aneurysm should be ruled out Stat CT abdomen and pelvis without contrast will be ordered Unfortunately patient has a high creatinine and no IV contrast can be given (6) Acute electrocardiogram changes Is this a current diagnosis for this admission?: YesPlan: Patient does have ST depression on precordial leads Likely some cardiac ischemia secondary to tachycardia Patient's troponins were on the downward trend Continue heparin IV Control rate Aspirin will be initiated as well as nitrates Noted that patient has no chest pain (7) Influenza A Is this a current diagnosis for this admission?: YesPlan: Initiate Tamiflu (8) Sepsis Qualifiers: Sepsis type: sepsis due to unspecified organism Qualified Code(s): A41.9 - Sepsis, unspecified organism Is this a current diagnosis for this admission?: YesPlan: Patient has a low-grade fever leukocytosis now is dyspneic We will initiate broad-spectrum antibiotics with Zosyn and linezolid,, - Time Time Spent with patient: Patient's condition is guarded at this time He will be transferred to the intensive care unit for closer monitoring Critical Time spent with patient: 25-34 minutes
[2016-04-01] MEDS ORDERED: DILTIAZEM HCL INJ 25 MG/5 ML VIAL IV ONE (09:00)
[2016-04-01] MEDS ORDERED: MORPHINE SULFATE 10 MG/ML INJ IV ONE (09:00)
[2016-04-01] MEDS: DEXTROSE 5%-WATER 500 ML with AMIODARONE HCL 900 MG IV PRN ×4 (09:22→15:57)
[2016-04-01] MEDS: DILTIAZEM HCL/D5W 125 ML IV PRN ×2 (09:25→15:57)
[2016-04-01 09:35] LABS: ABSOLUTE BASOPHILS # (AUTO) 0.1 10^3/uL (0.0-0.2); ABSOLUTE LYMPHOCYTES (AUTO) 1.8 10^3/uL (0.5-4.7); ABSOLUTE MONOCYTES (AUTO) 1.9 10^3/uL (0.1-1.4); ABSOLUTE NEUT (AUTO) 11.7 10^3/uL (1.7-8.2); BASOPHILS % (AUTO) 0.3 % (0-2); HEMATOCRIT 31.2 % (37.9-51.0); HEMOGLOBIN 10.4 g/dL (13.5-17.0); LYMPHOCYTES % (AUTO) 11.9 % (13-45); MEAN CORPUSCULAR HGB CONC 33.4 g/dL (32.0-36.0); MEAN CORPUSCULAR VOLUME 90 fl (80-97); MONOCYTES % (AUTO) 12.2 % (3-13); RED BLOOD COUNT 3.48 10^6/uL (4.35-5.55); SEGMENTED NEUTROPHILS % (AUTO) 75.6 % (42-78); WHITE BLOOD COUNT 15.5 10^3/uL (4.0-10.5)
[2016-04-01] MEDS ORDERED: HYDROMORPHONE HCL INJ/PF 2 MG/ML AMPULE ONE (09:41)
[2016-04-01] MEDS: LINEZOLID 300 ML IV SCH ×2 (09:42→21:07)
[2016-04-01] MEDS: PIPERACILLIN SODIUM/TAZOBACTAM 2.25 GM in NORMAL SALINE 50 ML IV SCH ×2 (09:42→17:10)
[2016-04-01 09:50] LABS: ALANINE AMINOTRANSFERASE 64 U/L (21-72); ALBUMIN 2.7 g/dL (3.5-5.0); ALKALINE PHOSPHATASE 64 U/L (38-126); ANION GAP 9 (5-19); ASPARTATE AMINO TRANSFERASE 79 U/L (17-59); BILIRUBIN,TOTAL 0.4 mg/dL (0.2-1.3); BLOOD UREA NITROGEN 31 mg/dL (7-20); CALCIUM 10.1 mg/dL (8.4-10.2); CARBON DIOXIDE 25 mmol/L (22-30); CHLORIDE 103 mmol/L (98-107); CHOLESTEROL 131.48 mg/dL (0-200); CREATININE RESULT 1.22 mg/dL (0.52-1.25); Direct HDL 30 mg/dL (>40); GLUCOSE 266 mg/dL (75-110); SODIUM 136.5 mmol/L (137-145); TOTAL PROTEIN 5.5 g/dL (6.3-8.2); TRIGLYCERIDES 186 mg/dL (<150)
[2016-04-01 10:00] LABS: CREATINE KINASE MB 3.45 ng/mL (<4.55); TROPONIN I 0.059 ng/mL
[2016-04-01] MEDS ORDERED: SERTRALINE HCL 50 MG TABLET PO SCH (10:00)
[2016-04-01] MEDS ORDERED: (PENDING PHARMACY ID) (Folic Acid/Multivit-Min/Lutein [Centrum Silver Chewable Tablet] 1 E PO SCH (10:00)
[2016-04-01] MEDS ORDERED: LANSOPRAZOLE 15 MG TAB.RAP.DR PO SCH (10:00)
[2016-04-01 10:01] LABS: DIRECT LDL 67 mg/dL (<100)
[2016-04-01 10:05] LABS: VLDL CHOLESTEROL 37.2 mg/dL (10-31)
[2016-04-01] MEDS: MULTIVITAMIN TABLET PO SCH (10:10)
[2016-04-01] MEDS: GUAIFENESIN 600 MG TABLET.SA PO SCH ×2 (10:10→21:06)
[2016-04-01 10:20] LABS: THYROID STIMULATING HORMONE 0.77 uIU/mL (0.47-4.68)
--- NOTE | 2016-04-01 10:28 | EKG REPORT ---
SEVERITY:- ABNORMAL ECG - ATRIAL FIBRILLATION NONSPECIFIC T ABNORMALITIES, ANT-LAT LEADS BORDERLINE PROLONGED QT INTERVAL : Confirmed by: Kp Najera 01-Apr-2016 10:27:51
[2016-04-01] MEDS ORDERED: MAGNESIUM SULFATE/D5W 3 GM/300 ML RTUPB IV ONE (11:17)
[2016-04-01] MEDS: OSELTAMIVIR PHOSPHATE 6 MG/1 ML SUSP 60 ML PO SCH (11:55)
[2016-04-01] MEDS: BUDESONIDE/FORMOTEROL 160-4.5 MCG 60 PUFF/6 GM MDI IH SCH ×2 (11:57→21:10)
[2016-04-01] MEDS: MAGNESIUM SULFATE/D5W 1 GM/100 ML RTUPB IV SCH ×3 (13:08→14:14)
[2016-04-01] MEDS: HYDROMORPHONE HCL INJ/PF 2 MG/ML AMPULE IV PRN ×3 (13:17→21:57)
[2016-04-01 16:29] LABS: ANION GAP 7 (5-19); BLOOD UREA NITROGEN 27 mg/dL (7-20); CALCIUM 10.1 mg/dL (8.4-10.2); CARBON DIOXIDE 26 mmol/L (22-30); CHLORIDE 102 mmol/L (98-107); GLUCOSE 276 mg/dL (75-110); MAGNESIUM 1.8 mg/dL (1.6-2.3); POTASSIUM 4.5 mmol/L (3.6-5.0); SODIUM 135.2 mmol/L (137-145)
[2016-04-01 20:44] LABS: HEMATOCRIT 29.6 % (37.9-51.0); HEMOGLOBIN 9.7 g/dL (13.5-17.0); HGB HCT DIFFERENCE -0.5; MEAN CORPUSCULAR HEMOGLOBIN 29.7 pg (27.0-33.4); MEAN CORPUSCULAR HGB CONC 32.9 g/dL (32.0-36.0); MEAN CORPUSCULAR VOLUME 90 fl (80-97); RED BLOOD COUNT 3.28 10^6/uL (4.35-5.55); RED CELL DISTRIBUTION WIDTH 13.1 % (11.5-14.0); WHITE BLOOD COUNT 14.7 10^3/uL (4.0-10.5)
[2016-04-01] MEDS: DOXAZOSIN MESYLATE 4 MG TABLET PO SCH (21:06)
[2016-04-01] MEDS: ROPINIROLE HCL 1 MG TABLET PO SCH (21:07)
[2016-04-02] MEDS: PIPERACILLIN SODIUM/TAZOBACTAM 2.25 GM in NORMAL SALINE 50 ML IV SCH ×3 (01:08→17:23)
[2016-04-02] MEDS: DILTIAZEM HCL/D5W 125 ML IV PRN (01:08)
[2016-04-02] MEDS: IPRATROPIUM BROMIDE 0.02% NEB 0.5 MG/2.5 ML AMPUL NEB SCH ×4 (02:58→20:17)
[2016-04-02] MEDS: LEVALBUTEROL HCL NEB 1.25 MG/3 ML AMPUL NEB SCH ×4 (03:01→20:17)
[2016-04-02 04:13] LABS: HEMATOCRIT 28.7 % (37.9-51.0); HEMOGLOBIN 9.4 g/dL (13.5-17.0); HGB HCT DIFFERENCE -0.5; MEAN CORPUSCULAR HEMOGLOBIN 29.7 pg (27.0-33.4); MEAN CORPUSCULAR HGB CONC 32.8 g/dL (32.0-36.0); MEAN CORPUSCULAR VOLUME 91 fl (80-97); RED BLOOD COUNT 3.17 10^6/uL (4.35-5.55); RED CELL DISTRIBUTION WIDTH 13.1 % (11.5-14.0); WHITE BLOOD COUNT 16.3 10^3/uL (4.0-10.5)
[2016-04-02 04:36] LABS: ANION GAP 5 (5-19); BLOOD UREA NITROGEN 23 mg/dL (7-20); CALCIUM 9.8 mg/dL (8.4-10.2); CARBON DIOXIDE 28 mmol/L (22-30); CHLORIDE 102 mmol/L (98-107); CREATININE RESULT 1.19 mg/dL (0.52-1.25); GLUCOSE 209 mg/dL (75-110); MAGNESIUM 1.6 mg/dL (1.6-2.3); SODIUM 135.1 mmol/L (137-145)
[2016-04-02] MEDS: LANSOPRAZOLE 15 MG TAB.RAP.DR PO SCH (05:06)
[2016-04-02] MEDS: HYDROMORPHONE HCL INJ/PF 2 MG/ML AMPULE IV PRN ×3 (08:02→17:23)
[2016-04-02] MEDS: MULTIVITAMIN TABLET PO SCH (09:09)
[2016-04-02] MEDS: GUAIFENESIN 600 MG TABLET.SA PO SCH ×2 (09:09→20:55)
[2016-04-02] MEDS: METOPROLOL SUCCINATE 50 MG TAB.SR.24H PO SCH ×2 (09:09→20:55)
[2016-04-02] MEDS ORDERED: AMIODARONE HCL 200 MG TABLET PO SCH (10:00)
[2016-04-02] MEDS: LINEZOLID 300 ML IV SCH ×2 (11:43→20:58)
[2016-04-02] MEDS: BUDESONIDE/FORMOTEROL 160-4.5 MCG 60 PUFF/6 GM MDI IH SCH ×2 (11:44→20:56)
[2016-04-02] MEDS: OSELTAMIVIR PHOSPHATE 6 MG/1 ML SUSP 60 ML PO SCH (11:45)
[2016-04-02] MEDS: DILTIAZEM HCL 30 MG TABLET PO SCH ×3 (11:46→23:27)
[2016-04-02] MEDS ORDERED: DEXTROSE 40% GEL 15 GM TUBE PO PRN ×2 (12:18)
[2016-04-02] MEDS ORDERED: DEXTROSE 50%-WATER 25 GM/50 ML DISP.SYRIN IV PRN ×2 (12:18)
[2016-04-02] MEDS ORDERED: GLUCAGON,HUMAN RECOMB 1 MG INJ IM PRN (12:18)
--- NOTE | 2016-04-02 12:36 | PDOC PROGRESS REPORT ---
Subjective Progress Note for:: 04/02/16 Subjective:: Patient is doing very well today He was transferred yesterday to the intensive care unit to the onset of severe back pain CT abdomen and pelvis was consistent with the retroperitoneal bleed Heparin Drip was discontinued Patient was closely monitored through the night; he remained in atrial fibrillation with rapid ventricular rate; Cardizem and amiodarone drip are continued Serial H&H were performed Patient did not need blood transfusions Today he has no chest pain shortness of breath, no back pain, no nausea or vomiting On the monitor is in atrial fibrillation at the rate of 95 per minute Physical Exam Vital Signs: Temp Pulse Resp BP Pulse Ox 98.6 F 95 25 H 129/73 H 95 04/02/16 12:14 04/02/16 12:14 04/02/16 12:14 04/02/16 12:14 04/02/16 12:14 Intake & Output 04/01/16 04/02/16 04/03/16 00:59 00:59 00:59 Intake Total 678 3328 1465 Output Total 450 1675 695 Balance 228 1653 770 Weight 109.7 kg 104 kg 107.8 kg General appearance: PRESENT: no acute distress, well-developed, well-nourished Head exam: PRESENT: atraumatic, normocephalic Eye exam: PRESENT: conjunctiva pink, EOMI, PERRLA. ABSENT: scleral icterus Ear exam: PRESENT: normal external ear exam Mouth exam: PRESENT: moist, tongue midline Neck exam: ABSENT: carotid bruit, JVD, lymphadenopathy, thyromegaly Respiratory exam: PRESENT: clear to auscultation nas. ABSENT: rales, rhonchi, wheezes Cardiovascular exam: PRESENT: irregular rhythm. ABSENT: diastolic murmur, rubs , systolic murmur Pulses: PRESENT: normal dorsalis pedis pul Vascular exam: PRESENT: normal capillary refill GI/Abdominal exam: PRESENT: normal bowel sounds, soft. ABSENT: distended, guarding, mass, organolmegaly, rebound, tenderness Rectal exam: PRESENT: deferred Extremities exam: PRESENT: full ROM. ABSENT: calf tenderness, clubbing, pedal edema Neurological exam: PRESENT: alert, awake, oriented to person, oriented to place , oriented to time, oriented to situation, CN II-XII grossly intact. ABSENT: motor sensory deficit Psychiatric exam: PRESENT: appropriate affect, normal mood. ABSENT: homicidal ideation, suicidal ideation Skin exam: PRESENT: dry, intact, warm. ABSENT: cyanosis, rash Results Laboratory Results: 04/02/16 03:49 04/02/16 03:49 04/01/16 04/01/16 04/02/16 15:55 20:25 03:49 WBC 14.7 H 16.3 H RBC 3.28 L 3.17 L Hgb 9.7 L 9.4 L Hct 29.6 L 28.7 L MCV 90 91 MCH 29.7 29.7 MCHC 32.9 32.8 RDW 13.1 13.1 Plt Count 321 303 Sodium 135.2 L Potassium 4.5 Chloride 102 Carbon Dioxide 26 Anion Gap 7 BUN 27 H Creatinine 1.10 Est GFR ( Amer) > 60 Est GFR (Non-Af Amer) > 60 Glucose 276 H Calcium 10.1 Magnesium 1.8 04/02/16 03:49 WBC RBC Hgb Hct MCV MCH MCHC RDW Plt Count Sodium 135.1 L Potassium 4.0 Chloride 102 Carbon Dioxide 28 Anion Gap 5 BUN 23 H Creatinine 1.19 Est GFR ( Amer) > 60 Est GFR (Non-Af Amer) 59 L Glucose 209 H Calcium 9.8 Magnesium 1.6 03/31/16 03/31/16 03/31/16 11:29 17:45 23:45 Creatine Kinase CK-MB (CK-2) Troponin I 0.081 0.080 0.068 NT-Pro-B Natriuret Pep 04/01/16 04/01/16 04/01/16 09:23 09:23 09:23 Creatine Kinase 633 H CK-MB (CK-2) 3.45 Troponin I 0.059 NT-Pro-B Natriuret Pep 2120 H Impressions: Renal Ultrasound 03/31/16 11:14 IMPRESSION: Benign cysts. No hydronephrosis. Chest X-Ray 04/01/16 08:01 IMPRESSION: Minimal left basilar atelectasis Obstructive lung disease Abdomen/Pelvis CT 04/01/16 08:18 IMPRESSION: Large right retroperitoneal psoas muscle hematoma, smaller right iliacus muscle hematoma Assessment & Plan - Diagnosis (1) DELILAH (acute kidney injury) Is this a current diagnosis for this admission?: YesPlan: 03/30/16 04/02/16 14:20 03:49 BUN 44 H 23 H Creatinine 2.83 H 1.19 Acute renal failure is improved was hydration Renal failure likely was secondary to dehydration renal function is normal now (2) Atrial fibrillation with rapid ventricular response Is this a current diagnosis for this admission?: YesPlan: Rate is better controlled Discontinued amiodarone as per Dr. Velarde cardiology; patient cannot be anticoagulated. and we do not want to convert him to sinus rhythm at this time as he would be at high risk for stroke We will continue Cardizem, added metoprolol Cardizem drip will be discontinued when rate is controlled (3) COPD exacerbation Is this a current diagnosis for this admission?: YesPlan: Continue nebs (4) Elevated troponin Is this a current diagnosis for this admission?: YesPlan: Troponins are in the intermediate range in the downward trend High troponins likely secondary to tachycardia and hypoxemia (5) Low back pain Qualifiers: Chronicity: acute Back pain laterality: unspecified Is this a current diagnosis for this admission?: YesPlan: Secondary to retroperitoneal bleed Has resolved Follow H&H (6) Acute electrocardiogram changes Is this a current diagnosis for this admission?: YesPlan: ST-T changes on precordial leads with mild ST depression V1 through V4 Likely secondary to tachycardia and ischemia (7) Influenza A Is this a current diagnosis for this admission?: YesPlan: Continue Tamiflu We'll increase the dosage as patient's renal function has improved (8) Sepsis Qualifiers: Sepsis type: sepsis due to unspecified organism Qualified Code(s): A41.9 - Sepsis, unspecified organism Is this a current diagnosis for this admission?: YesPlan: likely to be secondary to pneumonia and influenza Continue broad spectrum antibiotics until blood cultures are available and negative overall patient's condition is very much improved (9) Diabetes mellitus, type II Qualifiers: Diabetes mellitus complication status: without complication Diabetes mellitus custodial insulin use: without intermediate manager use Qualified Code(s): E11.9 - Type 2 diabetes mellitus without complications Is this a current diagnosis for this admission?: YesPlan: Upon questioning patient states that indeed he was on metformin 3 years ago Patient's blood sugars are over 200 and hemoglobin A1c over 8 We will start the patient on insulin coverage, and place the patient on diabetic diet 04/01/16 04/01/16 04/02/16 09:23 15:55 03:49 Glucose 276 H 209 H Hemoglobin A1c % 8.3 H - Time Time Spent with patient: 35 or more minutes
--- NOTE | 2016-04-02 12:55 | EKG REPORT ---
SEVERITY:- ABNORMAL ECG - ATRIAL FIBRILLATION, V-RATE 68-150 BORDERLINE R WAVE PROGRESSION, ANTERIOR LEADS NONSPECIFIC T ABNORMALITIES, DIFFUSE LEADS PVCs : Confirmed by: Kp Najera 02-Apr-2016 12:54:08
[2016-04-02 14:06] LABS: HEMATOCRIT 29.3 % (37.9-51.0); HEMOGLOBIN 9.6 g/dL (13.5-17.0); HGB HCT DIFFERENCE -0.5; MEAN CORPUSCULAR HEMOGLOBIN 29.7 pg (27.0-33.4); MEAN CORPUSCULAR HGB CONC 32.7 g/dL (32.0-36.0); MEAN CORPUSCULAR VOLUME 91 fl (80-97); RED BLOOD COUNT 3.22 10^6/uL (4.35-5.55); RED CELL DISTRIBUTION WIDTH 13.1 % (11.5-14.0); WHITE BLOOD COUNT 13.3 10^3/uL (4.0-10.5)
[2016-04-02] MEDS: INSULIN LISPRO 100 UNIT/ML 3 ML VIAL SUBCUT PRN (16:37)
[2016-04-02] MEDS: DOXAZOSIN MESYLATE 4 MG TABLET PO SCH (20:57)
[2016-04-02] MEDS: ROPINIROLE HCL 1 MG TABLET PO SCH (20:58)
[2016-04-03] MEDS: PIPERACILLIN SODIUM/TAZOBACTAM 2.25 GM in NORMAL SALINE 50 ML IV SCH ×2 (01:29→09:15)
[2016-04-03] MEDS: HYDROMORPHONE HCL INJ/PF 2 MG/ML AMPULE IV PRN ×4 (02:41→23:46)
[2016-04-03] MEDS: LEVALBUTEROL HCL NEB 1.25 MG/3 ML AMPUL NEB SCH ×4 (02:58→20:33)
[2016-04-03] MEDS: IPRATROPIUM BROMIDE 0.02% NEB 0.5 MG/2.5 ML AMPUL NEB SCH ×4 (02:58→20:34)
[2016-04-03] MEDS: DILTIAZEM HCL 30 MG TABLET PO SCH ×4 (05:12→23:45)
[2016-04-03] MEDS: LANSOPRAZOLE 15 MG TAB.RAP.DR PO SCH (05:12)
[2016-04-03 05:56] LABS: HEMATOCRIT 29.6 % (37.9-51.0); HEMOGLOBIN 9.6 g/dL (13.5-17.0); HGB HCT DIFFERENCE -0.8; MEAN CORPUSCULAR HEMOGLOBIN 29.4 pg (27.0-33.4); MEAN CORPUSCULAR HGB CONC 32.3 g/dL (32.0-36.0); MEAN CORPUSCULAR VOLUME 91 fl (80-97); RED BLOOD COUNT 3.26 10^6/uL (4.35-5.55); RED CELL DISTRIBUTION WIDTH 13.1 % (11.5-14.0); WHITE BLOOD COUNT 13.9 10^3/uL (4.0-10.5)
[2016-04-03 06:28] LABS: ANION GAP 6 (5-19); BLOOD UREA NITROGEN 20 mg/dL (7-20); CALCIUM 9.8 mg/dL (8.4-10.2); CARBON DIOXIDE 29 mmol/L (22-30); CHLORIDE 101 mmol/L (98-107); CREATININE RESULT 1.18 mg/dL (0.52-1.25); GLUCOSE 175 mg/dL (75-110); POTASSIUM 4.1 mmol/L (3.6-5.0); SODIUM 135.6 mmol/L (137-145)
[2016-04-03] MEDS: LINEZOLID 300 ML IV SCH (09:15)
[2016-04-03] MEDS: OSELTAMIVIR PHOSPHATE 6 MG/1 ML SUSP 60 ML PO SCH (09:16)
[2016-04-03] MEDS: METOPROLOL SUCCINATE 50 MG TAB.SR.24H PO SCH ×2 (09:16→21:13)
[2016-04-03] MEDS: MULTIVITAMIN TABLET PO SCH (09:17)
[2016-04-03] MEDS: GUAIFENESIN 600 MG TABLET.SA PO SCH ×2 (09:17→21:13)
[2016-04-03] MEDS: BUDESONIDE/FORMOTEROL 160-4.5 MCG 60 PUFF/6 GM MDI IH SCH ×2 (09:18→21:13)
[2016-04-03] MEDS: INSULIN LISPRO 100 UNIT/ML 3 ML VIAL SUBCUT PRN (12:48)
--- NOTE | 2016-04-03 17:19 | PDOC PROGRESS REPORT ---
Subjective Progress Note for:: 04/03/16 Subjective:: Patient is doing extremely well Is resting comfortably ; he is off the Cardizem drip alert and awake. He has minimal back pain Physical Exam Vital Signs: Temp Pulse Resp BP Pulse Ox 97.9 F 105 H 21 H 110/70 100 04/03/16 02:00 04/03/16 15:00 04/03/16 15:00 04/03/16 15:00 04/03/16 15:00 Intake & Output 04/02/16 04/03/16 04/04/16 00:59 00:59 00:59 Intake Total 3328 2647 500 Output Total 1675 1305 560 Balance 1653 1342 -60 Weight 104 kg 107.8 kg 107.9 kg General appearance: PRESENT: no acute distress, well-developed, well-nourished Head exam: PRESENT: atraumatic, normocephalic Eye exam: PRESENT: conjunctiva pink, EOMI, PERRLA. ABSENT: scleral icterus Ear exam: PRESENT: normal external ear exam Mouth exam: PRESENT: moist, tongue midline Neck exam: ABSENT: carotid bruit, JVD, lymphadenopathy, thyromegaly Respiratory exam: PRESENT: clear to auscultation nas. ABSENT: rales, rhonchi, wheezes Cardiovascular exam: PRESENT: RRR. ABSENT: diastolic murmur, rubs, systolic murmur Pulses: PRESENT: normal dorsalis pedis pul Vascular exam: PRESENT: normal capillary refill GI/Abdominal exam: PRESENT: normal bowel sounds, soft. ABSENT: distended, guarding, mass, organolmegaly, rebound, tenderness Rectal exam: PRESENT: deferred Extremities exam: PRESENT: full ROM. ABSENT: calf tenderness, clubbing, pedal edema Neurological exam: PRESENT: alert, awake, oriented to person, oriented to place , oriented to time, oriented to situation, CN II-XII grossly intact. ABSENT: motor sensory deficit Psychiatric exam: PRESENT: appropriate affect, normal mood. ABSENT: homicidal ideation, suicidal ideation Skin exam: PRESENT: dry, intact, warm. ABSENT: cyanosis, rash Results Laboratory Results: 04/03/16 05:17 04/03/16 05:17 04/03/16 04/03/16 05:17 05:17 WBC 13.9 H RBC 3.26 L Hgb 9.6 L Hct 29.6 L MCV 91 MCH 29.4 MCHC 32.3 RDW 13.1 Plt Count 290 Sodium 135.6 L Potassium 4.1 Chloride 101 Carbon Dioxide 29 Anion Gap 6 BUN 20 Creatinine 1.18 Est GFR ( Amer) > 60 Est GFR (Non-Af Amer) > 60 Glucose 175 H Calcium 9.8 03/31/16 03/31/16 03/31/16 11:29 17:45 23:45 Creatine Kinase CK-MB (CK-2) Troponin I 0.081 0.080 0.068 NT-Pro-B Natriuret Pep 04/01/16 04/01/16 04/01/16 09:23 09:23 09:23 Creatine Kinase 633 H CK-MB (CK-2) 3.45 Troponin I 0.059 NT-Pro-B Natriuret Pep 2120 H Impressions: Renal Ultrasound 03/31/16 11:14 IMPRESSION: Benign cysts. No hydronephrosis. Abdomen/Pelvis CT 04/01/16 08:18 IMPRESSION: Large right retroperitoneal psoas muscle hematoma, smaller right iliacus muscle hematoma Chest X-Ray 04/03/16 07:40 IMPRESSION: No interval change in the chest. Minimal left basilar atelectasis. Hyperexpansion. Assessment & Plan - Diagnosis (1) DELILAH (acute kidney injury) Is this a current diagnosis for this admission?: Yes (2) Atrial fibrillation with rapid ventricular response Is this a current diagnosis for this admission?: Yes (3) COPD exacerbation Is this a current diagnosis for this admission?: Yes (4) Elevated troponin Is this a current diagnosis for this admission?: Yes (5) Low back pain Qualifiers: Chronicity: acute Back pain laterality: unspecified Is this a current diagnosis for this admission?: Yes (6) Acute electrocardiogram changes Is this a current diagnosis for this admission?: Yes (7) Influenza A Is this a current diagnosis for this admission?: Yes (8) Sepsis Qualifiers: Sepsis type: sepsis due to unspecified organism Qualified Code(s): A41.9 - Sepsis, unspecified organism Is this a current diagnosis for this admission?: Yes (9) Diabetes mellitus, type II Qualifiers: Diabetes mellitus complication status: without complication Diabetes mellitus jail insulin use: without jail use Qualified Code(s): E11.9 - Type 2 diabetes mellitus without complications Is this a current diagnosis for this admission?: Yes - Time Time Spent with patient: Patient there would be transferred to [facility] We will continue present management We did increase Tamiflu to renal function patient will get total of 5 days; Blood cultures were negative We discontinued Zyvox Reevaluate chest x-ray If indeed there is no infiltrate in the chest x-ray will discontinue all antibiotics Continue to monitor and follow-up H&H Time Spent with patient: 25-34 minutes
[2016-04-03] MEDS ORDERED: HYDROMORPHONE HCL INJ/PF 2 MG/ML AMPULE ONE (17:36)
[2016-04-03] MEDS ORDERED: FUROSEMIDE INJ/PF 20 MG/2 ML SDV IV ONE (19:00)
[2016-04-03] MEDS: ROPINIROLE HCL 1 MG TABLET PO SCH (21:13)
[2016-04-03] MEDS: DOXAZOSIN MESYLATE 4 MG TABLET PO SCH (21:14)
[2016-04-04] MEDS: LEVALBUTEROL HCL NEB 1.25 MG/3 ML AMPUL NEB SCH ×4 (02:29→20:03)
[2016-04-04] MEDS: IPRATROPIUM BROMIDE 0.02% NEB 0.5 MG/2.5 ML AMPUL NEB SCH ×4 (02:29→20:03)
[2016-04-04] MEDS: LANSOPRAZOLE 15 MG TAB.RAP.DR PO SCH (06:45)
[2016-04-04] MEDS: DILTIAZEM HCL 30 MG TABLET PO SCH (06:45)
[2016-04-04] MEDS ORDERED: LEVALBUTEROL HCL NEB 1.25 MG/3 ML AMPUL NEB PRN (08:38)
--- NOTE | 2016-04-04 08:52 | PDOC PROGRESS REPORT ---
Subjective Progress Note for:: 04/04/16 Subjective:: Patient is feeling much better the back pain is still persistent constant; and at times still severe Patient is still on Dilaudid IV intermittently We will initiate Percocet and tramadol as needed H&H has been stable Last night he was somewhat short of breath with rhonchi on physical examination Repeat chest x-ray yesterday was unremarkable with " hyperinflated lungs , no infiltrates " Patient also suffers from constipation Physical Exam Vital Signs: Temp Pulse Resp BP Pulse Ox 97.2 F 86 19 117/67 98 04/04/16 07:59 04/04/16 07:59 04/04/16 07:59 04/04/16 07:59 04/04/16 07:59 Intake & Output 04/03/16 04/04/16 04/05/16 00:59 00:59 00:59 Intake Total 2647 857 205 Output Total 3422 300 5606 Balance 1342 -103 -895 Weight 107.8 kg 107.9 kg 107.7 kg General appearance: PRESENT: no acute distress, cooperative Head exam: PRESENT: atraumatic, normocephalic Eye exam: PRESENT: conjunctiva pink, EOMI, PERRLA. ABSENT: scleral icterus Neck exam: ABSENT: carotid bruit, JVD, lymphadenopathy, thyromegaly Respiratory exam: PRESENT: rhonchi - Bilaterally. ABSENT: accessory muscle use , rales, tachypnea, wheezes Cardiovascular exam: PRESENT: irregular rhythm Pulses: PRESENT: normal dorsalis pedis pul Vascular exam: PRESENT: normal capillary refill GI/Abdominal exam: PRESENT: normal bowel sounds, soft. ABSENT: distended, guarding, mass, organolmegaly, rebound, tenderness Extremities exam: PRESENT: full ROM. ABSENT: calf tenderness, clubbing, pedal edema Neurological exam: PRESENT: alert, awake, oriented to person, oriented to place , oriented to time, oriented to situation, CN II-XII grossly intact. ABSENT: motor sensory deficit Skin exam: PRESENT: dry, intact, warm. ABSENT: cyanosis, rash Results Laboratory Results: 04/03/16 05:17 04/03/16 05:17 03/31/16 03/31/16 03/31/16 11:29 17:45 23:45 Creatine Kinase CK-MB (CK-2) Troponin I 0.081 0.080 0.068 NT-Pro-B Natriuret Pep 04/01/16 04/01/16 04/01/16 09:23 09:23 09:23 Creatine Kinase 633 H CK-MB (CK-2) 3.45 Troponin I 0.059 NT-Pro-B Natriuret Pep 2120 H 04/03/16 04/03/16 04/03/16 12:44 16:17 21:10 POC Glucose 203 H 145 H 161 H 04/04/16 06:23 POC Glucose 153 H Impressions: Renal Ultrasound 03/31/16 11:14 IMPRESSION: Benign cysts. No hydronephrosis. Abdomen/Pelvis CT 04/01/16 08:18 IMPRESSION: Large right retroperitoneal psoas muscle hematoma, smaller right iliacus muscle hematoma Chest X-Ray 04/03/16 07:40 IMPRESSION: No interval change in the chest. Minimal left basilar atelectasis. Hyperexpansion. Assessment & Plan - Diagnosis (1) DELILAH (acute kidney injury) Is this a current diagnosis for this admission?: YesPlan: Has resolved Renal function is normal (2) Atrial fibrillation with rapid ventricular response Is this a current diagnosis for this admission?: YesPlan: Is rate controlled now ; patient has contraindications to anticoagulation Continue Cardizem continue metoprolol and digoxin (3) COPD exacerbation Is this a current diagnosis for this admission?: YesPlan: Likely We will initiate small doses of steroids, continue nebs, order steroid inhaler (4) Elevated troponin Is this a current diagnosis for this admission?: YesPlan: Likely troponin leak secondary to tachycardia hypoxemia anemia The echocardiogram did not show any wall motion abnormality and the EF was normal (5) Low back pain Qualifiers: Chronicity: acute Back pain laterality: unspecified Is this a current diagnosis for this admission?: YesPlan: Secondary to retroperitoneal bleed Should improve with time Initiate ambulation physical therapy (6) Acute electrocardiogram changes Is this a current diagnosis for this admission?: Yes (7) Influenza A Is this a current diagnosis for this admission?: YesPlan: Treatment with his Tamiflu will be completed tomorrow discontinue droplet precautions (8) Sepsis Qualifiers: Sepsis type: sepsis due to unspecified organism Qualified Code(s): A41.9 - Sepsis, unspecified organism Is this a current diagnosis for this admission?: YesPlan: Sepsis resolved Sepsis was likely secondary to influenza (9) Diabetes mellitus, type II Qualifiers: Diabetes mellitus complication status: without complication 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
[2016-04-04] MEDS ORDERED: TRAMADOL HCL 50 MG TABLET PO PRN (08:57)
[2016-04-04] MEDS: GUAIFENESIN 600 MG TABLET.SA PO SCH ×2 (09:03→21:20)
[2016-04-04] MEDS: SERTRALINE HCL 50 MG TABLET PO SCH (09:03)
[2016-04-04] MEDS: METOPROLOL SUCCINATE 50 MG TAB.SR.24H PO SCH ×2 (09:03→21:19)
[2016-04-04] MEDS: MULTIVITAMIN TABLET PO SCH (09:03)
[2016-04-04] MEDS: HYDROMORPHONE HCL INJ/PF 2 MG/ML AMPULE IV PRN ×2 (09:04→17:21)
[2016-04-04] MEDS: OSELTAMIVIR PHOSPHATE 6 MG/1 ML SUSP 60 ML PO SCH (09:04)
[2016-04-04] MEDS: BUDESONIDE/FORMOTEROL 160-4.5 MCG 60 PUFF/6 GM MDI IH SCH ×2 (09:10→21:18)
[2016-04-04] MEDS ORDERED: DILTIAZEM HCL 120 MG CAP.SR.24H PO SCH ×2 (10:00→22:00)
[2016-04-04] MEDS ORDERED: METFORMIN HCL 500 MG TABLET PO SCH (10:00)
[2016-04-04] MEDS: OXYCODONE-ACETAMINOPHEN 5-325 MG TABLET PO PRN (10:00)
[2016-04-04] MEDS: METFORMIN HCL 500 MG TABLET PO SCH (10:01)
[2016-04-04] MEDS: BISACODYL 5 MG TABEC PO SCH ×2 (10:02→17:20)
[2016-04-04] MEDS: POLYETHYLENE GLYCOL 3350 POWDER 17 GM/1 PACKET PO SCH (10:03)
[2016-04-04] MEDS: FUROSEMIDE INJ/PF 20 MG/2 ML SDV IV SCH ×2 (10:05→21:19)
[2016-04-04] MEDS ORDERED: DILTIAZEM HCL INJ 25 MG/5 ML VIAL ONE (13:20)
[2016-04-04] MEDS: FLUTICASONE/SALMETEROL DISKUS 250-50 MCG/DOSE IH SCH ×2 (13:32→21:22)
[2016-04-04] MEDS ORDERED: DILTIAZEM HCL INJ 25 MG/5 ML VIAL IV ONE (14:00)
[2016-04-04] MEDS: ROPINIROLE HCL 1 MG TABLET PO SCH (21:20)
[2016-04-04] MEDS: DOXAZOSIN MESYLATE 4 MG TABLET PO SCH (21:20)
[2016-04-05] MEDS: IPRATROPIUM BROMIDE 0.02% NEB 0.5 MG/2.5 ML AMPUL NEB SCH ×4 (02:20→19:12)
[2016-04-05] MEDS: LEVALBUTEROL HCL NEB 1.25 MG/3 ML AMPUL NEB SCH ×4 (02:20→19:12)
[2016-04-05] MEDS: LANSOPRAZOLE 15 MG TAB.RAP.DR PO SCH (06:18)
[2016-04-05] MEDS ORDERED: DILTIAZEM HCL 120 MG CAP.SR.24H PO SCH (09:00)
[2016-04-05 09:26] LABS: ABSOLUTE BASOPHILS # (AUTO) 0.1 10^3/uL (0.0-0.2); ABSOLUTE EOSINOPHILS # (AUTO) 0.4 10^3/uL (0.0-0.6); ABSOLUTE LYMPHOCYTES (AUTO) 3.3 10^3/uL (0.5-4.7); ABSOLUTE MONOCYTES (AUTO) 2.6 10^3/uL (0.1-1.4); ABSOLUTE NEUT (AUTO) 9.1 10^3/uL (1.7-8.2); BASOPHILS % (AUTO) 0.3 % (0-2); EOSINOPHILS % (AUTO) 2.5 % (0-6); HEMATOCRIT 29.3 % (37.9-51.0); HEMOGLOBIN 9.6 g/dL (13.5-17.0); HGB HCT DIFFERENCE -0.5; LYMPHOCYTES % (AUTO) 21.4 % (13-45); MEAN CORPUSCULAR HEMOGLOBIN 29.8 pg (27.0-33.4); MEAN CORPUSCULAR HGB CONC 32.9 g/dL (32.0-36.0); MEAN CORPUSCULAR VOLUME 91 fl (80-97); MONOCYTES % (AUTO) 16.9 % (3-13); RED BLOOD COUNT 3.23 10^6/uL (4.35-5.55); SEGMENTED NEUTROPHILS % (AUTO) 58.9 % (42-78); WHITE BLOOD COUNT 15.4 10^3/uL (4.0-10.5)
[2016-04-05] MEDS: METOPROLOL SUCCINATE 50 MG TAB.SR.24H PO SCH ×2 (09:28→21:32)
[2016-04-05] MEDS: METFORMIN HCL 500 MG TABLET PO SCH (09:29)
[2016-04-05] MEDS: GUAIFENESIN 600 MG TABLET.SA PO SCH ×2 (09:29→21:32)
[2016-04-05] MEDS: BISACODYL 5 MG TABEC PO SCH ×2 (09:29→18:11)
[2016-04-05] MEDS: SERTRALINE HCL 50 MG TABLET PO SCH (09:29)
[2016-04-05] MEDS: MULTIVITAMIN TABLET PO SCH (09:30)
[2016-04-05] MEDS: FUROSEMIDE INJ/PF 20 MG/2 ML SDV IV SCH ×2 (09:31→21:38)
[2016-04-05] MEDS: POLYETHYLENE GLYCOL 3350 POWDER 17 GM/1 PACKET PO SCH (09:31)
[2016-04-05] MEDS: BUDESONIDE/FORMOTEROL 160-4.5 MCG 60 PUFF/6 GM MDI IH SCH ×2 (09:33→21:31)
[2016-04-05] MEDS: FLUTICASONE/SALMETEROL DISKUS 250-50 MCG/DOSE IH SCH ×2 (09:34→21:31)
[2016-04-05 09:36] LABS: ANION GAP 6 (5-19); BLOOD UREA NITROGEN 20 mg/dL (7-20); CALCIUM 10.4 mg/dL (8.4-10.2); CARBON DIOXIDE 33 mmol/L (22-30); CHLORIDE 99 mmol/L (98-107); CREATININE RESULT 0.98 mg/dL (0.52-1.25); GLUCOSE 143 mg/dL (75-110); POTASSIUM 4.7 mmol/L (3.6-5.0); SODIUM 138.2 mmol/L (137-145)
[2016-04-05] MEDS: DILTIAZEM HCL 180 MG CAPSULE.CR PO SCH ×2 (09:41→21:32)
--- NOTE | 2016-04-05 12:23 | PDOC PROGRESS REPORT ---
Subjective Progress Note for:: 04/05/16 Subjective:: Patient is doing much better He had a good night sleep, no shortness of breath no chest pain minimal back pain He still in atrial fibrillation but with controlled ventricular rate His H&H has been stable He is being diuresed and fluid overload is resolving slowly Physical Exam Vital Signs: Temp Pulse Resp BP Pulse Ox 97.5 F 104 H 16 120/77 95 04/05/16 08:10 04/05/16 09:03 04/05/16 09:03 04/05/16 08:10 04/05/16 09:03 Intake & Output 04/04/16 04/05/16 04/06/16 00:59 00:59 00:59 Intake Total 857 796 5 Output Total 960 3000 200 Balance -103 -2204 -195 Weight 107.9 kg 107.7 kg 115.5 kg General appearance: PRESENT: no acute distress Head exam: PRESENT: atraumatic, normocephalic Eye exam: PRESENT: conjunctiva pink, EOMI, PERRLA. ABSENT: scleral icterus Neck exam: ABSENT: carotid bruit, JVD, lymphadenopathy, thyromegaly Respiratory exam: PRESENT: clear to auscultation nas. ABSENT: rales, rhonchi, wheezes Cardiovascular exam: PRESENT: irregular rhythm Pulses: PRESENT: normal dorsalis pedis pul GI/Abdominal exam: PRESENT: normal bowel sounds, soft. ABSENT: distended, guarding, mass, organolmegaly, rebound, tenderness Extremities exam: PRESENT: full ROM. ABSENT: calf tenderness, clubbing, pedal edema Neurological exam: PRESENT: alert, awake, oriented to person, oriented to place , oriented to time, oriented to situation, CN II-XII grossly intact. ABSENT: motor sensory deficit Results Laboratory Results: 04/05/16 09:15 04/05/16 09:15 04/05/16 04/05/16 09:15 09:15 WBC 15.4 H RBC 3.23 L Hgb 9.6 L Hct 29.3 L MCV 91 MCH 29.8 MCHC 32.9 RDW 13.0 Plt Count 426 Seg Neutrophils % 58.9 Lymphocytes % 21.4 Monocytes % 16.9 H Eosinophils % 2.5 Basophils % 0.3 Absolute Neutrophils 9.1 H Absolute Lymphocytes 3.3 Absolute Monocytes 2.6 H Absolute Eosinophils 0.4 Absolute Basophils 0.1 Sodium 138.2 Potassium 4.7 Chloride 99 Carbon Dioxide 33 H Anion Gap 6 BUN 20 Creatinine 0.98 Est GFR ( Amer) > 60 Est GFR (Non-Af Amer) > 60 Glucose 143 H Calcium 10.4 H 03/31/16 03/31/16 03/31/16 11:29 17:45 23:45 Creatine Kinase CK-MB (CK-2) Troponin I 0.081 0.080 0.068 NT-Pro-B Natriuret Pep 04/01/16 04/01/16 04/01/16 09:23 09:23 09:23 Creatine Kinase 633 H CK-MB (CK-2) 3.45 Troponin I 0.059 NT-Pro-B Natriuret Pep 2120 H 04/05/16 09:15 Creatine Kinase CK-MB (CK-2) Troponin I NT-Pro-B Natriuret Pep 2860 H Impressions: Renal Ultrasound 03/31/16 11:14 IMPRESSION: Benign cysts. No hydronephrosis. Abdomen/Pelvis CT 04/01/16 08:18 IMPRESSION: Large right retroperitoneal psoas muscle hematoma, smaller right iliacus muscle hematoma Chest X-Ray 04/03/16 07:40 IMPRESSION: No interval change in the chest. Minimal left basilar atelectasis. Hyperexpansion. Assessment & Plan - Diagnosis (1) DELILAH (acute kidney injury) Is this a current diagnosis for this admission?: Yes (2) Atrial fibrillation with rapid ventricular response Is this a current diagnosis for this admission?: Yes (3) COPD exacerbation Is this a current diagnosis for this admission?: Yes (4) Elevated troponin Is this a current diagnosis for this admission?: Yes (5) Low back pain Qualifiers: Chronicity: acute Back pain laterality: unspecified Is this a current diagnosis for this admission?: Yes (6) Acute electrocardiogram changes Is this a current diagnosis for this admission?: Yes (7) Influenza A Is this a current diagnosis for this admission?: Yes (8) Sepsis Qualifiers: Sepsis type: sepsis due to unspecified organism Qualified Code(s): A41.9 - Sepsis, unspecified organism Is this a current diagnosis for this admission?: Yes (9) Diabetes mellitus, type II Qualifiers: Diabetes mellitus complication status: without complication 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
[2016-04-05] MEDS: ROPINIROLE HCL 1 MG TABLET PO SCH (21:31)
[2016-04-05] MEDS: DOXAZOSIN MESYLATE 4 MG TABLET PO SCH (21:32)
[2016-04-05] MEDS: OXYCODONE-ACETAMINOPHEN 5-325 MG TABLET PO PRN (23:35)
[2016-04-06] MEDS: HYDROMORPHONE HCL INJ/PF 2 MG/ML AMPULE IV PRN (01:14)
[2016-04-06] MEDS: LEVALBUTEROL HCL NEB 1.25 MG/3 ML AMPUL NEB SCH ×3 (01:56→13:40)
[2016-04-06] MEDS: IPRATROPIUM BROMIDE 0.02% NEB 0.5 MG/2.5 ML AMPUL NEB SCH ×3 (01:56→13:40)
[2016-04-06] MEDS: LANSOPRAZOLE 15 MG TAB.RAP.DR PO SCH (06:41)
[2016-04-06] MEDS: FUROSEMIDE INJ/PF 20 MG/2 ML SDV IV SCH (09:56)
[2016-04-06] MEDS: FLUTICASONE/SALMETEROL DISKUS 250-50 MCG/DOSE IH SCH (09:56)
[2016-04-06] MEDS: METFORMIN HCL 500 MG TABLET PO SCH (09:56)
[2016-04-06] MEDS: BUDESONIDE/FORMOTEROL 160-4.5 MCG 60 PUFF/6 GM MDI IH SCH (09:56)
[2016-04-06] MEDS: GUAIFENESIN 600 MG TABLET.SA PO SCH (09:57)
[2016-04-06] MEDS: METOPROLOL SUCCINATE 50 MG TAB.SR.24H PO SCH (09:57)
[2016-04-06] MEDS: DILTIAZEM HCL 180 MG CAPSULE.CR PO SCH (09:57)
[2016-04-06] MEDS: MULTIVITAMIN TABLET PO SCH (09:57)
[2016-04-06] MEDS: SERTRALINE HCL 50 MG TABLET PO SCH (09:58)
[2016-04-06] MEDS: POLYETHYLENE GLYCOL 3350 POWDER 17 GM/1 PACKET PO SCH (09:58)
[2016-04-06] MEDS: BISACODYL 5 MG TABEC PO SCH (09:58)
[2016-04-06] MEDS ORDERED: OSELTAMIVIR PHOSPHATE 75 MG CAPSULE PO SCH (10:00)
--- NOTE | 2016-04-06 10:53 | PDOC TRANSFER SUMMARY ---
General Admission Date/PCP: 03/31/16 11:11 Admission Date: 03/31/16 Transfer Date: 04/06/16 [facility] Accepting Physician: Dr Prince Resuscitation Status: Full Code - Transfer Diagnosis (1) DELILAH (acute kidney injury) Is this a current diagnosis for this admission?: YesDiagnosis Summary: 03/30/16 04/05/16 14:20 09:15 BUN 44 H 20 Creatinine 2.83 H 0.98 Acute renal failure secondary to dehydration resolved renal function normal at time of transfer (2) Atrial fibrillation with rapid ventricular response Is this a current diagnosis for this admission?: YesDiagnosis Summary: Patient presented with PAF with RVR treated with cardizem drip , lopressor and later amiodarone drip Heparin drip was initiated Unfortunately Heparin was discontinued as patient developed a retroperitoneal hematoma Patient's atrial fibrillation is now rate controlled; but as soon as he ambulates the rate jumps to 130-140 Patient who is transferred to [facility] cardiac evaluation and treatment-JODY- cardioversion or ablation- (3) COPD exacerbation Is this a current diagnosis for this admission?: YesDiagnosis Summary: known history of COPD not O2 dependant Patient had no evidence of pneumonia on chest xray He still has purulent expectorations and is on levaquin 750 mg daily His oxygenation is adequate on nasal O2 95% on 4 l nasal cannula (4) Elevated troponin Is this a current diagnosis for this admission?: YesDiagnosis Summary: troponin was 1.8 on admission , with downward trend next day Patient was evaluated by cardiology Dr Najera " Elevated troponin I: Most likely related to supply demand mismatch. This is related to atrial fibrillation with rapid ventricular response. At this point recommend control of heart rate, chronic anticoagulation, statin therapy, Cardizem drip etc. Patient may benefit from a nuclear stress test but that can be performed prior to discharge or as an outpatient." Patient was treated with lipitor, aspirin , and heparin drip rate was controlled with cardizem drip and amiodarone drip Patient did not have any chest pain An Echocardiogram was performed : normal LVEF,LVH , no definite wall motion abnormality (5) Low back pain Is this a current diagnosis for this admission?: Yes (6) Acute electrocardiogram changes Is this a current diagnosis for this admission?: Yes (7) Influenza A Is this a current diagnosis for this admission?: YesDiagnosis Summary: Patient was treated with Tamiflu He will get the last dose of Tamiflu tonight 75 mg by mouth (8) Sepsis Is this a current diagnosis for this admission?: YesDiagnosis Summary: Likely was secondary to viral illness (9) Diabetes mellitus, type II Is this a current diagnosis for this admission?: YesDiagnosis Summary: Has been fairly well controlled Metformin 250 mg daily was initiated (10) Retroperitoneal hematoma Is this a current diagnosis for this admission?: YesDiagnosis Summary: On 04/01 patient developed new onset severe excruciating back pain CT abdomen and pelvis showed a retroperitoneal hematoma Patient was transferred to the intensive care unit Heparin was discontinued Serial H&H were stable Patient did not need transfusions The back pain has almost completely resolved and patient has remained stable - Transfer Medications Home Medications: Aspirin [Aspirin EC] 81 mg PO DAILY 12/25/13 Budesonide/Formoterol Fumarate [Symbicort HFA 160-4.5 mcg Inhaler 6 gm] 2 puff IH Q12 12/25/13 Folic Acid/Multivit-Min/Lutein [Centrum Silver Chewable Tablet] 1 each PO DAILY 12/25/13 Omeprazole [Prilosec] 20 mg PO QAM 12/25/13 Doxazosin Mesylate 8 mg PO QHS 12/26/15 Metoprolol Succinate 50 mg PO TID 12/26/15 Lisinopril/Hydrochlorothiazide [Lisinopril-Hctz 20-12.5 mg Tab] 1 tab PO DAILY 03/31/16 Sertraline HCl [Zoloft 50 mg Tablet] 50 mg PO DAILY 03/31/16 Transfer Medications: Current Medications Bisacodyl (Dulcolax 5 Mg Tablet) 5 mg PO BID [facility] Stop: 05/04/16 09:59 Last Admin: 04/06/16 09:58 Dose: Not Given Budesonide/Formoterol Fumarate (Symbicort Hfa 160-4.5 Mcg Inhaler 6 Gm) 2 puff IH Q12 [facility] Stop: 04/30/16 21:59 Last Admin: 04/06/16 09:56 Dose: 2 puff Dextrose (Dextrose Inj 50% Syringe (25 Gm/50 Ml)) 12.5 gm IV PRN PRN; Protocol PRN Reason: FOR BG 50-69 IN ALERT PATIENT Stop: 05/02/16 12:17 Dextrose (Dextrose Inj 50% Syringe (25 Gm/50 Ml)) 25 gm IV PRN PRN PRN Reason: Protocol Stop: 05/02/16 12:17 Diltiazem HCl (Cardizem Cd 180 Mg Capsule) 180 mg PO Q12 [facility] Stop: 05/05/16 09:59 Last Admin: 04/06/16 09:57 Dose: 180 mg Doxazosin Mesylate (Cardura 4 Mg Tablet) 8 mg PO QHS JESSICA Stop: 04/30/16 21:59 Last Admin: 04/05/16 21:32 Dose: 8 mg Furosemide (Lasix Inj/Pf 20 Mg/2 Ml Sdv) 20 mg IV Q12 JESSICA Stop: 05/04/16 09:59 Last Admin: 04/06/16 09:56 Dose: 20 mg Glucagon (Glucagen Inj 1 Mg Vial) 1 mg IM PRN PRN; Protocol PRN Reason: Evaluate for BG < 70 Stop: 05/02/16 12:17 Glucose (Glutose 40% Gel 15 Gm Tube) 15 gm PO PRN PRN; Protocol PRN Reason: FOR BG 50-69 IN ALERT PATIENT Stop: 05/02/16 12:17 Glucose (Glutose 40% Gel 15 Gm Tube) 30 gm PO PRN PRN; Protocol PRN Reason: FOR BG < 50 IN ALERT PATIENT Stop: 05/02/16 12:17 Guaifenesin (Mucinex Sr 600 Mg Tablet.Sa) 600 mg PO Q12 [facility] Stop: 04/30/16 21:59 Last Admin: 04/06/16 09:57 Dose: 600 mg Hydralazine HCl (Apresoline Inj/Pf 20 Mg/1 Ml Sdv) 10 mg IV Q6HP PRN PRN Reason: Sbp>160 Stop: 04/30/16 22:03 Hydromorphone HCl (Dilaudid Inj/Pf 2 Mg/Ml Ampule) 1 mg IV Q3HP PRN PRN Reason: PAIN Stop: 04/08/16 09:43 Last Admin: 04/06/16 01:14 Dose: 1 mg Ipratropium [place] (Atrovent 0.02% Neb 0.5 Mg/2.5 Ml Ampul) 0.5 mg NEB RTQ6 JESSICA Stop: 04/30/16 21:59 Last Admin: 04/06/16 07:58 Dose: 0.5 mg Lansoprazole (Prevacid 15 Mg Odt Tablet) 15 mg PO Q6AM JESSICA Stop: 05/01/16 05:59 Last Admin: 04/06/16 06:41 Dose: 15 mg Levalbuterol HCl (Xopenex Neb 1.25 Mg/3 Ml Ampul) 1.25 mg NEB RTQ6 JESSICA Stop: 05/01/16 07:59 Last Admin: 04/06/16 07:58 Dose: 1.25 mg Levalbuterol HCl (Xopenex Neb 1.25 Mg/3 Ml Ampul) 1.25 mg NEB RTQ6HP PRN PRN Reason: FOR WHEEZING Stop: 05/04/16 08:37 Levofloxacin (Levaquin 750 Mg Tablet) 750 mg PO DAILY JESSICA Stop: 04/13/16 10:59 Metformin HCl (Glucophage 500 Mg Tablet) 250 mg PO DAILY JESSICA Stop: 05/04/16 09:59 Last Admin: 04/06/16 09:56 Dose: 250 mg Metoprolol Succinate (Toprol Xl 50 Mg Tab.Sr) 50 mg PO Q12 JESSICA Stop: 05/02/16 09:59 Last Admin: 04/06/16 09:57 Dose: 50 mg Multivitamins (Tab-A-[place] (Multiple Vitamin) Tablet) 1 tab PO DAILY JESSICA Stop: 05/01/16 09:59 Last Admin: 04/06/16 09:57 Dose: 1 tab Oseltamivir Phosphate (Tamiflu 75 Mg Capsule) 75 mg PO Q12 JESSICA Stop: 04/06/16 22:01 Last Admin: 04/06/16 09:57 Dose: 75 mg Oxycodone/Acetaminophen (Percocet 5-325 Mg Tablet) 1 tab PO Q4HP PRN PRN Reason: MODERATE PAIN Stop: 04/11/16 08:56 Last Admin: 04/05/16 23:35 Dose: 1 tab Polyethylene Glycol (Miralax Powder 17 Gm/Packet) 17 gm PO DAILY JESSICA Stop: 05/04/16 09:59 Last Admin: 04/06/16 09:58 Dose: Not Given Ropinirole HCl (Requip 1 Mg Tablet) 1 mg PO QHS JESSICA Stop: 04/30/16 21:59 Last Admin: 04/05/16 21:31 Dose: 1 mg Fluticasone/Salmeterol (Advair 250-50 Diskus 14 Dose/Diskus) 1 inh IH Q12 JESSICA Stop: 05/04/16 09:59 Last Admin: 04/06/16 09:56 Dose: 1 inh Sertraline HCl (Zoloft 50 Mg Tablet) 50 mg PO DAILY JESSICA Stop: 05/04/16 09:59 Last Admin: 04/06/16 09:58 Dose: 50 mg Tramadol HCl (Ultram 50 Mg Tablet) 50 mg PO Q6HP PRN Stop: 04/11/16 08:56 Last Admin: 04/04/16 17:20 Dose: 50 mg - Allergies Allergies/Adverse Reactions: No Known Allergies Allergy (Verified 03/30/16 14:54) - Diet/Activity Discharge Diet: As Tolerated Hospital Course Hospital Course: Patient was admitted sepsis paroxysmal atrial fibrillation His was likely secondary to a viral illness Now on Levaquin as he started coughing up purulent sputum, his chest x-rays have been unremarkable Patient developed retroperitoneal hematoma after he was placed on heparin; He has been stable since heparin was discontinued Patient is transferred treatment of atrial fibrillation -JODY cardioversion or ablation as he is not a candidate for further anticoagulation future And the rate is still erratic at times Physical Exam Vital Signs: Temp Pulse Resp BP Pulse Ox 97.7 F 104 H 20 112/83 95 04/06/16 07:54 04/06/16 08:00 04/06/16 08:00 04/06/16 07:54 04/06/16 08:00 Intake & Output 04/05/16 04/06/16 04/07/16 00:59 00:59 00:59 Intake Total 796 559 208 Output Total 3000 500 Balance -2204 59 208 Weight 107.7 kg 115.5 kg 114.1 kg General appearance: PRESENT: no acute distress, well-developed, well-nourished Head exam: PRESENT: atraumatic, normocephalic Eye exam: PRESENT: conjunctiva pink, EOMI, PERRLA. ABSENT: scleral icterus Ear exam: PRESENT: normal external ear exam Mouth exam: PRESENT: moist, tongue midline Neck exam: ABSENT: carotid bruit, JVD, lymphadenopathy, thyromegaly Respiratory exam: PRESENT: clear to auscultation nas. ABSENT: rales, rhonchi, wheezes Cardiovascular exam: PRESENT: irregular rhythm. ABSENT: diastolic murmur, rubs , systolic murmur Pulses: PRESENT: normal dorsalis pedis pul Vascular exam: PRESENT: normal capillary refill GI/Abdominal exam: PRESENT: normal bowel sounds, soft. ABSENT: distended, guarding, mass, organolmegaly, rebound, tenderness Rectal exam: PRESENT: deferred Extremities exam: PRESENT: full ROM. ABSENT: calf tenderness, clubbing, pedal edema Neurological exam: PRESENT: alert, awake, oriented to person, oriented to place , oriented to time, oriented to situation, CN II-XII grossly intact. ABSENT: motor sensory deficit Psychiatric exam: PRESENT: appropriate affect, normal mood. ABSENT: homicidal ideation, suicidal ideation Skin exam: PRESENT: dry, intact, warm. ABSENT: cyanosis, rash Results Laboratory Results: 04/05/16 09:15 04/05/16 09:15 04/01/16 10:10 Blood Blood Culture - Final NO GROWTH IN 5 DAYS 04/01/16 09:23 Blood Blood Culture - Final NO GROWTH IN 5 DAYS 03/31/16 03/31/16 03/31/16 11:29 17:45 23:45 Creatine Kinase CK-MB (CK-2) Troponin I 0.081 0.080 0.068 NT-Pro-B Natriuret Pep 04/01/16 04/01/16 04/01/16 09:23 09:23 09:23 Creatine Kinase 633 H CK-MB (CK-2) 3.45 Troponin I 0.059 NT-Pro-B Natriuret Pep 2120 H 04/05/16 09:15 Creatine Kinase CK-MB (CK-2) Troponin I NT-Pro-B Natriuret Pep 2860 H Labs- Entire Visit 03/30/16 03/30/16 03/30/16 14:20 14:20 14:20 WBC 16.0 H RBC 4.02 L Hgb 11.9 L Hct 36.7 L MCV 91 MCH 29.6 MCHC 32.4 RDW 13.3 Plt Count 405 Total Counted 100 Seg Neutrophils % Not Reportable Seg Neuts % (Manual) 35 L Band Neutrophils % Lymphocytes % Not Reportable Lymphocytes % (Manual) 23 Atypical Lymphs % 20 Monocytes % Not Reportable Monocytes % (Manual) 21 H Eosinophils % Not Reportable Eosinophils % (Manual) 0 Basophils % Not Reportable Basophils % (Manual) 1 Metamyelocytes % Absolute Neutrophils Not Reportable Abs Neuts (Manual) 5.6 Absolute Lymphocytes Not Reportable Abs Lymphs (Manual) 6.9 H Absolute Monocytes Not Reportable Abs Monocytes (Manual) 3.4 H Absolute Eosinophils Not Reportable Absolute Eos (Manual) 0.0 Absolute Basophils Not Reportable Abs Basophils (Manual) 0.2 Smudge Cells PRESENT Toxic Granulation SLIGHT Platelet Comment ADEQUATE RBC Morph Comment NORMO-CYTIC/CHROMIC PT INR APTT Sodium 138.3 Potassium 4.2 Chloride 99 Carbon Dioxide 28 Anion Gap 11 BUN 44 H Creatinine 2.83 H Est GFR ( Amer) 26 L Est GFR (Non-Af Amer) 22 L Glucose 160 H POC Glucose Hemoglobin A1c % Lactic Acid Calcium 11.5 H Magnesium Total Bilirubin Direct Bilirubin AST ALT Alkaline Phosphatase Creatine Kinase 1269 H CK-MB (CK-2) Troponin I 0.181 NT-Pro-B Natriuret Pep 7300 H Total Protein Albumin Triglycerides Cholesterol LDL Cholesterol Direct VLDL Cholesterol HDL Cholesterol TSH Free T4 Urine Color Urine Appearance Urine pH Ur Specific [place] Urine Protein Urine Glucose (UA) Urine Ketones Urine Blood Urine Nitrite Urine Bilirubin Urine Urobilinogen Ur Leukocyte Esterase Urine WBC (Auto) Urine RBC (Auto) U Hyaline Cast (Auto) Urine Bacteria (Auto) Squamous Epi Cells Auto Urine Mucus (Auto) Urine Ascorbic Acid Influenza A (Rapid) Influenza B (Rapid) Slides for Path Review 03/30/16 03/30/16 03/30/16 16:05 20:30 21:23 WBC RBC Hgb Hct MCV MCH MCHC RDW Plt Count Total Counted Seg Neutrophils % Seg Neuts % (Manual) Band Neutrophils % Lymphocytes % Lymphocytes % (Manual) Atypical Lymphs % Monocytes % Monocytes % (Manual) Eosinophils % Eosinophils % (Manual) Basophils % Basophils % (Manual) Metamyelocytes % Absolute Neutrophils Abs Neuts (Manual) Absolute Lymphocytes Abs Lymphs (Manual) Absolute Monocytes Abs Monocytes (Manual) Absolute Eosinophils Absolute Eos (Manual) Absolute Basophils Abs Basophils (Manual) Smudge Cells Toxic Granulation Platelet Comment RBC Morph Comment PT INR APTT Sodium Potassium Chloride Carbon Dioxide Anion Gap BUN Creatinine Est GFR ( Amer) Est GFR (Non-Af Amer) Glucose POC Glucose Hemoglobin A1c % Lactic Acid 1.7 Calcium Magnesium Total Bilirubin Direct Bilirubin AST ALT Alkaline Phosphatase Creatine Kinase CK-MB (CK-2) Troponin I 0.122 NT-Pro-B Natriuret Pep Total Protein Albumin Triglycerides Cholesterol LDL Cholesterol Direct VLDL Cholesterol HDL Cholesterol TSH Free T4 Urine Color YELLOW Urine Appearance CLOUDY Urine pH 5.0 Ur Specific [place] 1.019 Urine Protein 30 H Urine Glucose (UA) NEGATIVE Urine Ketones TRACE H Urine Blood NEGATIVE Urine Nitrite NEGATIVE Urine Bilirubin NEGATIVE Urine Urobilinogen NEGATIVE Ur Leukocyte Esterase NEGATIVE Urine WBC (Auto) 7 Urine RBC (Auto) 4 U Hyaline Cast (Auto) 111 Urine Bacteria (Auto) TRACE Squamous Epi Cells Auto 5 Urine Mucus (Auto) OCC Urine Ascorbic Acid NEGATIVE Influenza A (Rapid) Influenza B (Rapid) Slides for Path Review 03/31/16 03/31/16 03/31/16 00:39 00:39 00:39 WBC RBC Hgb Hct MCV MCH MCHC RDW Plt Count Total Counted Seg Neutrophils % Seg Neuts % (Manual) Band Neutrophils % Lymphocytes % Lymphocytes % (Manual) Atypical Lymphs % Monocytes % Monocytes % (Manual) Eosinophils % Eosinophils % (Manual) Basophils % Basophils % (Manual) Metamyelocytes % Absolute Neutrophils Abs Neuts (Manual) Absolute Lymphocytes Abs Lymphs (Manual) Absolute Monocytes Abs Monocytes (Manual) Absolute Eosinophils Absolute Eos (Manual) Absolute Basophils Abs Basophils (Manual) Smudge Cells Toxic Granulation Platelet Comment RBC Morph Comment PT 14.6 INR 1.10 APTT Cancelled Sodium Potassium Chloride Carbon Dioxide Anion Gap BUN Creatinine Est GFR ( Amer) Est GFR (Non-Af Amer) Glucose POC Glucose Hemoglobin A1c % Lactic Acid Calcium Magnesium Total Bilirubin Direct Bilirubin AST ALT Alkaline Phosphatase Creatine Kinase CK-MB (CK-2) Troponin I 0.109 NT-Pro-B Natriuret Pep Total Protein Albumin Triglycerides Cholesterol LDL Cholesterol Direct VLDL Cholesterol HDL Cholesterol TSH Free T4 Urine Color Urine Appearance Urine pH Ur Specific [place] Urine Protein Urine Glucose (UA) Urine Ketones Urine Blood Urine Nitrite Urine Bilirubin Urine Urobilinogen Ur Leukocyte Esterase Urine WBC (Auto) Urine RBC (Auto) U Hyaline Cast (Auto) Urine Bacteria (Auto) Squamous Epi Cells Auto Urine Mucus (Auto) Urine Ascorbic Acid Influenza A (Rapid) Influenza B (Rapid) Slides for Path Review 03/31/16 03/31/16 03/31/16 02:49 06:46 11:29 WBC RBC Hgb Hct MCV MCH MCHC RDW Plt Count Total Counted Seg Neutrophils % Seg Neuts % (Manual) Band Neutrophils % Lymphocytes % Lymphocytes % (Manual) Atypical Lymphs % Monocytes % Monocytes % (Manual) Eosinophils % Eosinophils % (Manual) Basophils % Basophils % (Manual) Metamyelocytes % Absolute Neutrophils Abs Neuts (Manual) Absolute Lymphocytes Abs Lymphs (Manual) Absolute Monocytes Abs Monocytes (Manual) Absolute Eosinophils Absolute Eos (Manual) Absolute Basophils Abs Basophils (Manual) Smudge Cells Toxic Granulation Platelet Comment RBC Morph Comment PT 14.2 INR 1.07 APTT 108.1 H 149.2 H* Sodium Potassium Chloride Carbon Dioxide Anion Gap BUN Creatinine Est GFR ( Amer) Est GFR (Non-Af Amer) Glucose POC Glucose Hemoglobin A1c % Lactic Acid Calcium Magnesium Total Bilirubin Direct Bilirubin AST ALT Alkaline Phosphatase Creatine Kinase CK-MB (CK-2) Troponin I 0.081 NT-Pro-B Natriuret Pep Total Protein Albumin Triglycerides Cholesterol LDL Cholesterol Direct VLDL Cholesterol HDL Cholesterol TSH Free T4 Urine Color Urine Appearance Urine pH Ur Specific [place] Urine Protein Urine Glucose (UA) Urine Ketones Urine Blood Urine Nitrite Urine Bilirubin Urine Urobilinogen Ur Leukocyte Esterase Urine WBC (Auto) Urine RBC (Auto) U Hyaline Cast (Auto) Urine Bacteria (Auto) Squamous Epi Cells Auto Urine Mucus (Auto) Urine Ascorbic Acid Influenza A (Rapid) Influenza B (Rapid) Slides for Path Review 03/31/16 03/31/16 03/31/16 13:01 17:45 17:45 WBC 20.1 H RBC 3.65 L Hgb 10.9 L Hct 32.8 L MCV 90 MCH 29.9 MCHC 33.2 RDW 13.4 Plt Count 344 Total Counted 100 Seg Neutrophils % Not Reportable Seg Neuts % (Manual) 62 Band Neutrophils % 2 L Lymphocytes % Not Reportable Lymphocytes % (Manual) 17 Atypical Lymphs % Monocytes % Not Reportable Monocytes % (Manual) 18 H Eosinophils % Not Reportable Eosinophils % (Manual) 0 Basophils % Not Reportable Basophils % (Manual) 0 Metamyelocytes % 1 H Absolute Neutrophils Not Reportable Abs Neuts (Manual) 13.1 H Absolute Lymphocytes Not Reportable Abs Lymphs (Manual) 3.4 Absolute Monocytes Not Reportable Abs Monocytes (Manual) 3.6 H Absolute Eosinophils Not Reportable Absolute Eos (Manual) 0.0 Absolute Basophils Not Reportable Abs Basophils (Manual) 0.0 Smudge Cells Toxic Granulation SLIGHT Platelet Comment ADEQUATE RBC Morph Comment PT INR APTT 65.5 H Sodium Potassium Chloride Carbon Dioxide Anion Gap BUN Creatinine Est GFR ( Amer) Est GFR (Non-Af Amer) Glucose POC Glucose Hemoglobin A1c % Lactic Acid Calcium Magnesium Total Bilirubin Direct Bilirubin AST ALT Alkaline Phosphatase Creatine Kinase CK-MB (CK-2) Troponin I 0.080 NT-Pro-B Natriuret Pep Total Protein Albumin Triglycerides Cholesterol LDL Cholesterol Direct VLDL Cholesterol HDL Cholesterol TSH Free T4 Urine Color Urine Appearance Urine pH Ur Specific [place] Urine Protein Urine Glucose (UA) Urine Ketones Urine Blood Urine Nitrite Urine Bilirubin Urine Urobilinogen Ur Leukocyte Esterase Urine WBC (Auto) Urine RBC (Auto) U Hyaline Cast (Auto) Urine Bacteria (Auto) Squamous Epi Cells Auto Urine Mucus (Auto) Urine Ascorbic Acid Influenza A (Rapid) Influenza B (Rapid) Slides for Path Review 03/31/16 03/31/16 03/31/16 17:45 19:00 21:30 WBC RBC Hgb Hct MCV MCH MCHC RDW Plt Count Total Counted Seg Neutrophils % Seg Neuts % (Manual) Band Neutrophils % Lymphocytes % Lymphocytes % (Manual) Atypical Lymphs % Monocytes % Monocytes % (Manual) Eosinophils % Eosinophils % (Manual) Basophils % Basophils % (Manual) Metamyelocytes % Absolute Neutrophils Abs Neuts (Manual) Absolute Lymphocytes Abs Lymphs (Manual) Absolute Monocytes Abs Monocytes (Manual) Absolute Eosinophils Absolute Eos (Manual) Absolute Basophils Abs Basophils (Manual) Smudge Cells Toxic Granulation Platelet Comment RBC Morph Comment PT 13.2 INR 0.97 APTT 51.1 H Sodium Potassium Chloride Carbon Dioxide Anion Gap BUN Creatinine Est GFR ( Amer) Est GFR (Non-Af Amer) Glucose POC Glucose Hemoglobin A1c % Lactic Acid Calcium Magnesium Total Bilirubin Direct Bilirubin AST ALT Alkaline Phosphatase Creatine Kinase CK-MB (CK-2) Troponin I NT-Pro-B Natriuret Pep Total Protein Albumin Triglycerides Cholesterol LDL Cholesterol Direct VLDL Cholesterol HDL Cholesterol TSH Free T4 Urine Color YELLOW Urine Appearance CLEAR Urine pH 5.0 Ur Specific [place] 1.013 Urine Protein NEGATIVE Urine Glucose (UA) NEGATIVE Urine Ketones NEGATIVE Urine Blood SMALL H Urine Nitrite NEGATIVE Urine Bilirubin NEGATIVE Urine Urobilinogen NEGATIVE Ur Leukocyte Esterase NEGATIVE Urine WBC (Auto) 2 Urine RBC (Auto) 5 U Hyaline Cast (Auto) Urine Bacteria (Auto) Squamous Epi Cells Auto Urine Mucus (Auto) Urine Ascorbic Acid NEGATIVE Influenza A (Rapid) POSITIVE Influenza B (Rapid) NEGATIVE Slides for Path Review 03/31/16 04/01/16 04/01/16 23:45 02:40 09:23 WBC RBC Hgb Hct MCV MCH MCHC RDW Plt Count Total Counted Seg Neutrophils % Seg Neuts % (Manual) Band Neutrophils % Lymphocytes % Lymphocytes % (Manual) Atypical Lymphs % Monocytes % Monocytes % (Manual) Eosinophils % Eosinophils % (Manual) Basophils % Basophils % (Manual) Metamyelocytes % Absolute Neutrophils Abs Neuts (Manual) Absolute Lymphocytes Abs Lymphs (Manual) Absolute Monocytes Abs Monocytes (Manual) Absolute Eosinophils Absolute Eos (Manual) Absolute Basophils Abs Basophils (Manual) Smudge Cells Toxic Granulation Platelet Comment RBC Morph Comment PT INR APTT 68.2 H Sodium 136.5 L Potassium 4.0 Chloride 103 Carbon Dioxide 25 Anion Gap 9 BUN 31 H Creatinine 1.22 Est GFR ( Amer) > 60 Est GFR (Non-Af Amer) 58 L Glucose 266 H POC Glucose Hemoglobin A1c % Lactic Acid Calcium 10.1 Magnesium 1.0 L* Total Bilirubin 0.4 Direct Bilirubin 0.0 AST 79 H ALT 64 Alkaline Phosphatase 64 Creatine Kinase CK-MB (CK-2) Troponin I 0.068 NT-Pro-B Natriuret Pep Total Protein 5.5 L Albumin 2.7 L Triglycerides 186 H Cholesterol 131.48 LDL Cholesterol Direct 67 VLDL Cholesterol 37.2 H HDL Cholesterol 30 L TSH Free T4 Urine Color Urine Appearance Urine pH Ur Specific [place] Urine Protein Urine Glucose (UA) Urine Ketones Urine Blood Urine Nitrite Urine Bilirubin Urine Urobilinogen Ur Leukocyte Esterase Urine WBC (Auto) Urine RBC (Auto) U Hyaline Cast (Auto) Urine Bacteria (Auto) Squamous Epi Cells Auto Urine Mucus (Auto) Urine Ascorbic Acid Influenza A (Rapid) Influenza B (Rapid) Slides for Path Review 04/01/16 04/01/16 04/01/16 09:23 09:23 09:23 WBC 15.5 H RBC 3.48 L Hgb 10.4 L Hct 31.2 L MCV 90 MCH 30.0 MCHC 33.4 RDW 13.0 Plt Count 346 Total Counted Seg Neutrophils % 75.6 Seg Neuts % (Manual) Band Neutrophils % Lymphocytes % 11.9 L Lymphocytes % (Manual) Atypical Lymphs % Monocytes % 12.2 Monocytes % (Manual) Eosinophils % 0.0 Eosinophils % (Manual) Basophils % 0.3 Basophils % (Manual) Metamyelocytes % Absolute Neutrophils 11.7 H Abs Neuts (Manual) Absolute Lymphocytes 1.8 Abs Lymphs (Manual) Absolute Monocytes 1.9 H Abs Monocytes (Manual) Absolute Eosinophils 0.0 Absolute Eos (Manual) Absolute Basophils 0.1 Abs Basophils (Manual) Smudge Cells Toxic Granulation Platelet Comment RBC Morph Comment PT INR APTT Sodium Potassium Chloride Carbon Dioxide Anion Gap BUN Creatinine Est GFR ( Amer) Est GFR (Non-Af Amer) Glucose POC Glucose Hemoglobin A1c % 8.3 H Lactic Acid Calcium Magnesium Total Bilirubin Direct Bilirubin AST ALT Alkaline Phosphatase Creatine Kinase CK-MB (CK-2) Troponin I NT-Pro-B Natriuret Pep Total Protein Albumin Triglycerides Cholesterol LDL Cholesterol Direct VLDL Cholesterol HDL Cholesterol TSH 0.77 Free T4 1.40 Urine Color Urine Appearance Urine pH Ur Specific [place] Urine Protein Urine Glucose (UA) Urine Ketones Urine Blood Urine Nitrite Urine Bilirubin Urine Urobilinogen Ur Leukocyte Esterase Urine WBC (Auto) Urine RBC (Auto) U Hyaline Cast (Auto) Urine Bacteria (Auto) Squamous Epi Cells Auto Urine Mucus (Auto) Urine Ascorbic Acid Influenza A (Rapid) Influenza B (Rapid) Slides for Path Review 04/01/16 04/01/16 04/01/16 09:23 09:23 09:23 WBC RBC Hgb Hct MCV MCH MCHC RDW Plt Count Total Counted Seg Neutrophils % Seg Neuts % (Manual) Band Neutrophils % Lymphocytes % Lymphocytes % (Manual) Atypical Lymphs % Monocytes % Monocytes % (Manual) Eosinophils % Eosinophils % (Manual) Basophils % Basophils % (Manual) Metamyelocytes % Absolute Neutrophils Abs Neuts (Manual) Absolute Lymphocytes Abs Lymphs (Manual) Absolute Monocytes Abs Monocytes (Manual) Absolute Eosinophils Absolute Eos (Manual) Absolute Basophils Abs Basophils (Manual) Smudge Cells Toxic Granulation Platelet Comment RBC Morph Comment PT INR APTT Sodium Potassium Chloride Carbon Dioxide Anion Gap BUN Creatinine Est GFR ( Amer) Est GFR (Non-Af Amer) Glucose POC Glucose Hemoglobin A1c % Lactic Acid Calcium Magnesium Total Bilirubin Direct Bilirubin AST ALT Alkaline Phosphatase Creatine Kinase 633 H CK-MB (CK-2) 3.45 Troponin I 0.059 NT-Pro-B Natriuret Pep 2120 H Total Protein Albumin Triglycerides Cholesterol LDL Cholesterol Direct VLDL Cholesterol HDL Cholesterol TSH Free T4 Urine Color Urine Appearance Urine pH Ur Specific [place] Urine Protein Urine Glucose (UA) Urine Ketones Urine Blood Urine Nitrite Urine Bilirubin Urine Urobilinogen Ur Leukocyte Esterase Urine WBC (Auto) Urine RBC (Auto) U Hyaline Cast (Auto) Urine Bacteria (Auto) Squamous Epi Cells Auto Urine Mucus (Auto) Urine Ascorbic Acid Influenza A (Rapid) Influenza B (Rapid) Slides for Path Review 04/01/16 04/01/16 04/02/16 15:55 20:25 03:49 WBC 14.7 H 16.3 H RBC 3.28 L 3.17 L Hgb 9.7 L 9.4 L Hct 29.6 L 28.7 L MCV 90 91 MCH 29.7 29.7 MCHC 32.9 32.8 RDW 13.1 13.1 Plt Count 321 303 Total Counted Seg Neutrophils % Seg Neuts % (Manual) Band Neutrophils % Lymphocytes % Lymphocytes % (Manual) Atypical Lymphs % Monocytes % Monocytes % (Manual) Eosinophils % Eosinophils % (Manual) Basophils % Basophils % (Manual) Metamyelocytes % Absolute Neutrophils Abs Neuts (Manual) Absolute Lymphocytes Abs Lymphs (Manual) Absolute Monocytes Abs Monocytes (Manual) Absolute Eosinophils Absolute Eos (Manual) Absolute Basophils Abs Basophils (Manual) Smudge Cells Toxic Granulation Platelet Comment RBC Morph Comment PT INR APTT Sodium 135.2 L Potassium 4.5 Chloride 102 Carbon Dioxide 26 Anion Gap 7 BUN 27 H Creatinine 1.10 Est GFR ( Amer) > 60 Est GFR (Non-Af Amer) > 60 Glucose 276 H POC Glucose Hemoglobin A1c % Lactic Acid Calcium 10.1 Magnesium 1.8 Total Bilirubin Direct Bilirubin AST ALT Alkaline Phosphatase Creatine Kinase CK-MB (CK-2) Troponin I NT-Pro-B Natriuret Pep Total Protein Albumin Triglycerides Cholesterol LDL Cholesterol Direct VLDL Cholesterol HDL Cholesterol TSH Free T4 Urine Color Urine Appearance Urine pH Ur Specific [place] Urine Protein Urine Glucose (UA) Urine Ketones Urine Blood Urine Nitrite Urine Bilirubin Urine Urobilinogen Ur Leukocyte Esterase Urine WBC (Auto) Urine RBC (Auto) U Hyaline Cast (Auto) Urine Bacteria (Auto) Squamous Epi Cells Auto Urine Mucus (Auto) Urine Ascorbic Acid Influenza A (Rapid) Influenza B (Rapid) Slides for Path Review 04/02/16 04/02/16 04/02/16 03:49 13:57 16:33 WBC 13.3 H RBC 3.22 L Hgb 9.6 L Hct 29.3 L MCV 91 MCH 29.7 MCHC 32.7 RDW 13.1 Plt Count 291 Total Counted Seg Neutrophils % Seg Neuts % (Manual) Band Neutrophils % Lymphocytes % Lymphocytes % (Manual) Atypical Lymphs % Monocytes % Monocytes % (Manual) Eosinophils % Eosinophils % (Manual) Basophils % Basophils % (Manual) Metamyelocytes % Absolute Neutrophils Abs Neuts (Manual) Absolute Lymphocytes Abs Lymphs (Manual) Absolute Monocytes Abs Monocytes (Manual) Absolute Eosinophils Absolute Eos (Manual) Absolute Basophils Abs Basophils (Manual) Smudge Cells Toxic Granulation Platelet Comment RBC Morph Comment PT INR APTT Sodium 135.1 L Potassium 4.0 Chloride 102 Carbon Dioxide 28 Anion Gap 5 BUN 23 H Creatinine 1.19 Est GFR ( Amer) > 60 Est GFR (Non-Af Amer) 59 L Glucose 209 H POC Glucose 226 H Hemoglobin A1c % Lactic Acid Calcium 9.8 Magnesium 1.6 Total Bilirubin Direct Bilirubin AST ALT Alkaline Phosphatase Creatine Kinase CK-MB (CK-2) Troponin I NT-Pro-B Natriuret Pep Total Protein Albumin Triglycerides Cholesterol LDL Cholesterol Direct VLDL Cholesterol HDL Cholesterol TSH Free T4 Urine Color Urine Appearance Urine pH Ur Specific [place] Urine Protein Urine Glucose (UA) Urine Ketones Urine Blood Urine Nitrite Urine Bilirubin Urine Urobilinogen Ur Leukocyte Esterase Urine WBC (Auto) Urine RBC (Auto) U Hyaline Cast (Auto) Urine Bacteria (Auto) Squamous Epi Cells Auto Urine Mucus (Auto) Urine Ascorbic Acid Influenza A (Rapid) Influenza B (Rapid) Slides for Path Review 04/02/16 04/03/16 04/03/16 23:29 05:17 05:17 WBC 13.9 H RBC 3.26 L Hgb 9.6 L Hct 29.6 L MCV 91 MCH 29.4 MCHC 32.3 RDW 13.1 Plt Count 290 Total Counted Seg Neutrophils % Seg Neuts % (Manual) Band Neutrophils % Lymphocytes % Lymphocytes % (Manual) Atypical Lymphs % Monocytes % Monocytes % (Manual) Eosinophils % Eosinophils % (Manual) Basophils % Basophils % (Manual) Metamyelocytes % Absolute Neutrophils Abs Neuts (Manual) Absolute Lymphocytes Abs Lymphs (Manual) Absolute Monocytes Abs Monocytes (Manual) Absolute Eosinophils Absolute Eos (Manual) Absolute Basophils Abs Basophils (Manual) Smudge Cells Toxic Granulation Platelet Comment RBC Morph Comment PT INR APTT Sodium 135.6 L Potassium 4.1 Chloride 101 Carbon Dioxide 29 Anion Gap 6 BUN 20 Creatinine 1.18 Est GFR ( Amer) > 60 Est GFR (Non-Af Amer) > 60 Glucose 175 H POC Glucose 192 H Hemoglobin A1c % Lactic Acid Calcium 9.8 Magnesium Total Bilirubin Direct Bilirubin AST ALT Alkaline Phosphatase Creatine Kinase CK-MB (CK-2) Troponin I NT-Pro-B Natriuret Pep Total Protein Albumin Triglycerides Cholesterol LDL Cholesterol Direct VLDL Cholesterol HDL Cholesterol TSH Free T4 Urine Color Urine Appearance Urine pH Ur Specific [place] Urine Protein Urine Glucose (UA) Urine Ketones Urine Blood Urine Nitrite Urine Bilirubin Urine Urobilinogen Ur Leukocyte Esterase Urine WBC (Auto) Urine RBC (Auto) U Hyaline Cast (Auto) Urine Bacteria (Auto) Squamous Epi Cells Auto Urine Mucus (Auto) Urine Ascorbic Acid Influenza A (Rapid) Influenza B (Rapid) Slides for Path Review 04/03/16 04/03/16 04/03/16 12:44 16:17 21:10 WBC RBC Hgb Hct MCV MCH MCHC RDW Plt Count Total Counted Seg Neutrophils % Seg Neuts % (Manual) Band Neutrophils % Lymphocytes % Lymphocytes % (Manual) Atypical Lymphs % Monocytes % Monocytes % (Manual) Eosinophils % Eosinophils % (Manual) Basophils % Basophils % (Manual) Metamyelocytes % Absolute Neutrophils Abs Neuts (Manual) Absolute Lymphocytes Abs Lymphs (Manual) Absolute Monocytes Abs Monocytes (Manual) Absolute Eosinophils Absolute Eos (Manual) Absolute Basophils Abs Basophils (Manual) Smudge Cells Toxic Granulation Platelet Comment RBC Morph Comment PT INR APTT Sodium Potassium Chloride Carbon Dioxide Anion Gap BUN Creatinine Est GFR ( Amer) Est GFR (Non-Af Amer) Glucose POC Glucose 203 H 145 H 161 H Hemoglobin A1c % Lactic Acid Calcium Magnesium Total Bilirubin Direct Bilirubin AST ALT Alkaline Phosphatase Creatine Kinase CK-MB (CK-2) Troponin I NT-Pro-B Natriuret Pep Total Protein Albumin Triglycerides Cholesterol LDL Cholesterol Direct VLDL Cholesterol HDL Cholesterol TSH Free T4 Urine Color Urine Appearance Urine pH Ur Specific [place] Urine Protein Urine Glucose (UA) Urine Ketones Urine Blood Urine Nitrite Urine Bilirubin Urine Urobilinogen Ur Leukocyte Esterase Urine WBC (Auto) Urine RBC (Auto) U Hyaline Cast (Auto) Urine Bacteria (Auto) Squamous Epi Cells Auto Urine Mucus (Auto) Urine Ascorbic Acid Influenza A (Rapid) Influenza B (Rapid) Slides for Path Review 04/04/16 04/04/16 04/04/16 06:23 11:44 15:40 WBC RBC Hgb Hct MCV MCH MCHC RDW Plt Count Total Counted Seg Neutrophils % Seg Neuts % (Manual) Band Neutrophils % Lymphocytes % Lymphocytes % (Manual) Atypical Lymphs % Monocytes % Monocytes % (Manual) Eosinophils % Eosinophils % (Manual) Basophils % Basophils % (Manual) Metamyelocytes % Absolute Neutrophils Abs Neuts (Manual) Absolute Lymphocytes Abs Lymphs (Manual) Absolute Monocytes Abs Monocytes (Manual) Absolute Eosinophils Absolute Eos (Manual) Absolute Basophils Abs Basophils (Manual) Smudge Cells Toxic Granulation Platelet Comment RBC Morph Comment PT INR APTT Sodium Potassium Chloride Carbon Dioxide Anion Gap BUN Creatinine Est GFR ( Amer) Est GFR (Non-Af Amer) Glucose POC Glucose 153 H 202 H 184 H Hemoglobin A1c % Lactic Acid Calcium Magnesium Total Bilirubin Direct Bilirubin AST ALT Alkaline Phosphatase Creatine Kinase CK-MB (CK-2) Troponin I NT-Pro-B Natriuret Pep Total Protein Albumin Triglycerides Cholesterol LDL Cholesterol Direct VLDL Cholesterol HDL Cholesterol TSH Free T4 Urine Color Urine Appearance Urine pH Ur Specific [place] Urine Protein Urine Glucose (UA) Urine Ketones Urine Blood Urine Nitrite Urine Bilirubin Urine Urobilinogen Ur Leukocyte Esterase Urine WBC (Auto) Urine RBC (Auto) U Hyaline Cast (Auto) Urine Bacteria (Auto) Squamous Epi Cells Auto Urine Mucus (Auto) Urine Ascorbic Acid Influenza A (Rapid) Influenza B (Rapid) Slides for Path Review 04/05/16 04/05/16 04/05/16 09:15 09:15 09:15 WBC 15.4 H RBC 3.23 L Hgb 9.6 L Hct 29.3 L MCV 91 MCH 29.8 MCHC 32.9 RDW 13.0 Plt Count 426 Total Counted Seg Neutrophils % 58.9 Seg Neuts % (Manual) Band Neutrophils % Lymphocytes % 21.4 Lymphocytes % (Manual) Atypical Lymphs % Monocytes % 16.9 H Monocytes % (Manual) Eosinophils % 2.5 Eosinophils % (Manual) Basophils % 0.3 Basophils % (Manual) Metamyelocytes % Absolute Neutrophils 9.1 H Abs Neuts (Manual) Absolute Lymphocytes 3.3 Abs Lymphs (Manual) Absolute Monocytes 2.6 H Abs Monocytes (Manual) Absolute Eosinophils 0.4 Absolute Eos (Manual) Absolute Basophils 0.1 Abs Basophils (Manual) Smudge Cells Toxic Granulation Platelet Comment RBC Morph Comment PT INR APTT Sodium 138.2 Potassium 4.7 Chloride 99 Carbon Dioxide 33 H Anion Gap 6 BUN 20 Creatinine 0.98 Est GFR ( Amer) > 60 Est GFR (Non-Af Amer) > 60 Glucose 143 H POC Glucose Hemoglobin A1c % Lactic Acid Calcium 10.4 H Magnesium Total Bilirubin Direct Bilirubin AST ALT Alkaline Phosphatase Creatine Kinase CK-MB (CK-2) Troponin I NT-Pro-B Natriuret Pep 2860 H Total Protein Albumin Triglycerides Cholesterol LDL Cholesterol Direct VLDL Cholesterol HDL Cholesterol TSH Free T4 Urine Color Urine Appearance Urine pH Ur Specific [place] Urine Protein Urine Glucose (UA) Urine Ketones Urine Blood Urine Nitrite Urine Bilirubin Urine Urobilinogen Ur Leukocyte Esterase Urine WBC (Auto) Urine RBC (Auto) U Hyaline Cast (Auto) Urine Bacteria (Auto) Squamous Epi Cells Auto Urine Mucus (Auto) Urine Ascorbic Acid Influenza A (Rapid) Influenza B (Rapid) Slides for Path Review Impressions: Renal Ultrasound 03/31/16 11:14 IMPRESSION: Benign cysts. No hydronephrosis. Abdomen/Pelvis CT 04/01/16 08:18 IMPRESSION: Large right retroperitoneal psoas muscle hematoma, smaller right iliacus muscle hematoma Chest X-Ray 04/03/16 07:40 IMPRESSION: No interval change in the chest. Minimal left basilar atelectasis. Hyperexpansion.
[2016-04-06] MEDS ORDERED: LEVOFLOXACIN 750 MG TABLET PO ONE (11:15)
[2016-04-06 16:17] VITALS: BP 121/67
[2016-04-07] MEDS ORDERED: LEVOFLOXACIN 750 MG TABLET PO SCH (10:00)
== END 2016-04-06 16:27 | disposition short-term general hospital (02) | DRG 871 ==
LOC: ER 13:57 → UNDOADMIN 03-31 10:37 → EH 03-31 10:37 → 3W 03-31 14:28 → ICU 04-01 08:48 → 3W 04-03 14:54 → UNDODISIN 04-06 15:14
PROVIDERS: ADMIT Emergency Medicine; ATTEND Emergency Medicine
DX: A41.9 Sepsis, unspecified organism (principal); I50.33 Acute on chronic diastolic (congestive) heart failure; N17.9 Acute kidney failure, unspecified; J44.1 Chronic obstructive pulmonary disease with (acute) exacerbation; M62.82 Rhabdomyolysis; D68.32 Hemorrhagic disorder due to extrinsic circulating anticoagulants; I48.0 Paroxysmal atrial fibrillation; J10.1 Influenza due to other identified influenza virus with other respiratory manifestations; R94.31 Abnormal electrocardiogram [ECG] [EKG]; E11.9 Type 2 diabetes mellitus without complications; M54.5 Low back pain; R58 Hemorrhage, not elsewhere classified; T45.515A Adverse effect of anticoagulants, initial encounter; Y92.230 Patient room in hospital as the place of occurrence of the external cause; Z79.82 Long term (current) use of aspirin; Z87.891 Personal history of nicotine dependence
CPT/HCPCS: 36415; 71010; 74176; 76770; 80048; 80053; 80061; 81001; 82550; 82553; 82962; 83036; 83605; 83735; 83880; 84439; 84443; 84484; 85025; 85027; 85610; 85730; 87040; 87804; 93005; 93010; 93306; 94640; 94667; 94799; 96361; 96374; 96375; 96376; 99285; G8978-GP; G8979-GP; J0282; J1170; J1644; J1815; J1940; J2020; J2270; J2405; J2543; J2930; J3475; J3490; J7030; J7060; J7620